=== PATIENT | female | born 1950 | race Caucasian/White ===

== ENCOUNTER 2022-01-10 13:30 | Outpatient (RCR) | payer MEDICARE, SELFPAY ==
[2022-01-07 10:25] VITALS: BP 150/72; PULSE 69; RESP 16; TEMP 36.5; BMI 40.8
--- NOTE | 2022-01-07 14:31 | HP.PCM_ITS ---
History of Present Illness Date of Service: 01/07/22 Chief Complaint: Bilateral lower extremity swelling and edema, with chronic dermatitic changes in the right gaiter area History of Wound: This is a 71-year-old female who presents with chronic swelling and edema in her lower extremities, with dermatitic changes in the gaiter area of the right lower extremity. The swelling and edema have been present for approximately 4 months. There currently are no open wounds. Erythema and sloughing epithelium are present in the right lower extremity. Patient claims that she has swelling in her lower extremities, more pronounced in the evenings. The skin changes in the right lower extremity began in September 2021, at which time she developed blistering. Because of the itching, patient scratched it, subsequently creating superficial ulcerations. She has been treated by her primary care physician in the past by steroid creams, which did not provide any improvement. The patient claims to sleep on a flat mattress at night. However, ambulation is limited due to pulmonary factors, as her asthma limits her ability to walk any significant distances. She spends a great deal of her time each day sitting. However, she denies any symptoms of intermittent claudication to suggest the presence of arterial insufficiency. Patient denies a history of lower extremity thrombophlebitis. [facility] Medical History (Updated 01/07/22 @ 14:[address] David Bruner MD) Asthma Chronic kidney disease, stage 3 Dependent edema GERD (gastroesophageal reflux disease) Glaucoma Hyperlipidemia Hypertension Leg edema Leg swelling Obesity Obstructive sleep apnea Venous stasis dermatitis Home Medications atorvastatin 10 mg PO DAILY 01/07/22 [History Last Taken Unknown] esomeprazole magnesium 40 mg PO DAILY 01/07/22 [History Last Taken Unknown] famotidine 40 mg PO DAILY 01/07/22 [History Last Taken Unknown] furosemide 10 mg PO BID 01/07/22 [History Last Taken Unknown] labetalol 300 mg PO BID 01/07/22 [History Last Taken Unknown] latanoprost 1 drp EACH EYE DAILY 01/07/22 [History Last Taken Unknown] lisinopril 20 mg PO DAILY 01/07/22 [History Last Taken Unknown] magnesium 15 mg PO DAILY 01/07/22 [History Last Taken Unknown] potassium citrate 10 meq PO TID 01/07/22 [History Last Taken Unknown] pramipexole 1 mg PO DAILY 01/07/22 [History Last Taken Unknown] spironolactone 25 mg DAILY 01/07/22 [History Last Taken Unknown] timolol maleate 1 drp EACH EYE DAILY 01/07/22 [History Last Taken Unknown] Allergy/AdvReac Type Severity Reaction Status Date / Time acetaminophen [From Vicodin] Allergy Itching Verified 01/07/22 10:55 hydrocodone [From Vicodin] Allergy Itching Verified 01/07/22 10:55 naproxen Allergy Swelling Verified 01/07/22 10:55 alendronate sodium AdvReac Nausea Verified 01/07/22 10:55 [From Fosamax] meloxicam AdvReac Nausea Verified 01/07/22 10:55 Social History Smoking Status: Never smoker Vital Signs Vital Signs Vital Signs: 01/07/22 10:25 Temperature 97.7 F L Temperature Source Temporal Pulse Rate 69 Respiratory Rate 16 Blood Pressure 150/72 H Blood Pressure Mean 98 Blood Pressure Source Monitor Blood Pressure Position Sitting Blood Pressure Location Right Arm Oxygen Delivery Method Room Air Weight Weight: 209 lb Body Mass Index (BMI) 40.8 Physical Exam Const alert, oriented x3, no apparent distress and well nourished Constitutional Narrative: The patient is obese. General Appearance: cooperative, comfortable and well developed Orientation / Consciousness: awake, oriented to person, oriented to place and oriented to time HEENT normocephalic and head/scalp atraumatic Head and Scalp: normal to inspection, normocephalic and atraumatic External Ear: external ears normal Eyes PERRL and EOMs intact bilaterally General Eye: normal appearance of both eyes Resp normal respiratory effort, normal air movement, no retractions and no use of accessory muscles Effort and Inspection: able to speak in complete sentences Extremity no calf tenderness General Extremity: Negative for clubbing or cyanosis Skin Wound Narrative: Mild swelling and edema are noted in the lower extremities bilaterally. The skin is intact in the left lower extremity. In the right gaiter area, however, there is a diffuse inflammatory erythema. Furthermore, there is a large area of sloughing epithelium. There are no odalys open wounds or ulcerations. Neuro oriented x3, CN's II-XII intact bilaterally and moves all extremities Sensorium / Orientation: awake, alert, oriented to person, oriented to place and oriented to time Psych Appearance: grossly normal and appropriate Attitude: calm Activity / Motor Behavior: appropriate eye contact Speech: normal speech Mood & Affect: euthymic mood Thought Process: normal thought process Thought Content: normal thought content Attention / Concentration: attention grossly intact Debridement Note Debridement Note No debridement was completed: No debridement was completed today (There are no open wounds or ulcerations.) Post-Debridement Measurements and Additional Note: Post-Debridement Measurements/Treatment - Nurse 1 - General Ulcer Assessment Start: 01/07/22 09:44 Freq: Status: Active Protocol: FRANCES Activity Type Activity Date Activity User E-Sign Co-Sign Detail Recorded Client Recorded Date Recorded By Document 01/07/22 10:25 MW [id number] 01/07/22 10:38 MW 01/07/22 10:25 - Today's Visit Information Type of service Initial Visit Arrival Mode Ambulatory Transfer Assistance None Accompanied by self Patient Identification Verified (Name & Yes ) Patient Requires Transmission-Based No Precautions Height and Weight Height 5 ft Weight 209 lb Weight in Pounds 209.0 lbs Weight Measurement Method Stated by Patient Body Mass Index (BMI) 40.8 BMI Classification Obese BSA - Christina 1.90 Vital Signs Temperature (97.8 F-99.1 F) 97.7 F L Temperature Source Temporal Pulse Rate (60-100) 69 Pulse Location Monitor Respiratory Rate (12-18) 16 Respiratory rate source Observation Oxygen Delivery Method Room Air Blood Pressure (90/60-120/80) 150/72 H Blood Pressure Mean 98 Source Monitor Position Sitting Blood Pressure Location Right Arm History Since Last Visit- (Skip if this is Patient's initial visit) Left Footwear Regular Shoe Right Footwear Regular Shoe Pain Scale: 0-10 Numeric Is Patient Pain Free? Yes Lower Extremity Assessment/ Foot Assessment/ Toe Nail Assessment Right -Popliteal Doppler Multiphasic -Posterior Tibial Palpable No -Posterior Tibial Doppler Multiphasic -Dorsalis Pedis Palpable No -Dorsalis Pedis Doppler Monophasic -Extremity Color Red -Hair Growth on Legs No -Hair Growth on Toes No -Temperature of Extremity Warm -Capillary Refill Less than 3 Seconds -Dependent Rubor No -Lipodermatosclerosis No -Other Deformity No -Prior Foot Ulcer No -Charcot Joint No -Prior Amputation No -Thick No -Discolored No -Deformed No -Improper Length & Hygeine No Left -Claudication Assessment N/A due to Amputation -Posterior Tibial Palpable No -Posterior Tibial Doppler Multiphasic -Dorsalis Pedis Palpable No -Dorsalis Pedis Doppler Multiphasic -Extremity Color Normal -Hair Growth on Legs No -Hair Growth on Toes No -Temperature of Extremity Warm -Capillary Refill Less than 3 Seconds -Dependent Rubor No -Lipodermatosclerosis No -Other Deformity No -Prior Foot Ulcer No -Charcot Joint No -Prior Amputation No -Thick No -Discolored No -Deformed No -Improper Length & Hygeine No Communication Assessment Preferred language Romansh Wind Turbine Installer Required No Able to Read Yes Able to Write Yes Communication Tools None,Letter Board Caregiver Communication Skills No Impairment Impairment Right Hearing Abillity Normal Left Hearing Abillity Normal Visual Assistive Devices Glasses Teaching Assessment Preferences Verbal,Written, Audio/Visual, Demonstration Barriers to Learning None Readiness To Learn Excellent Readiness to Engage in Self Management High Activities Anxiety Level Calm Cooperation Cooperative Perception Coherent Interest in Health Problem Asks Questions Education Importance Acknowledges Need Does Patient Smoke tobacco or other No substances Smoking Status Never smoker Is Patient Diabetic No Functional Assessment Recent Decline in Ability to Perform Denies Any Declines Assistive Device With Patient No Culture/Jain/Lathe Set Up Operator Cultural/Jain Needs that may affect No Treatment Plan Would you allow our hospital application internship to No meet you for the purpose of spiritual/ emotional support? Lathe Set Up Operator to contact place of sikhism No Teaching: Wound Center *Welcome to the Wound Center -Person Taught Patient -Teaching Method Discussion -Response to teaching Verbalize understanding WC - Nurse 1 - General Ulcer Measurement Start: 01/07/22 09:44 Freq: Status: Active Protocol: Activity Type Activity Date Activity User E-Sign Co-Sign Detail Recorded Client Recorded Date Recorded By Document 01/07/22 10:25 MW [id number] 01/07/22 10:38 MW 01/07/22 10:25 Wound Center Nurse 1 #1 RLE -Combined with other wound No -Current Size (cm) - Length 0.1 -Current Size (cm) - Width 0.1 -Current Size (cm) - Depth 0.1 -Total Square Cm 0.01 -Date of Last Picture (Recall this 01/07/22 field) -Photo Taken Yes -Epithelialization None Present -Tunneling No -Undermining/Tunneling No -Circular Undermining No -Exudate Amt None Present -Wound Margin Flat & Intact -Granulation Amt None Present (0 %) -Granulation Quality N/A -Slough/Fibrin Yes -Necrosis Amt Large (67-100%) -Necrotic Tissue Type Eschar -Structure Exposed N/A -Texture (Caitlin-wound Skin Appearance) Assessed, Excoriation, Localized Edema -Moisture (Caitlin-wound Skin Appearance) Assessed,Dry/ Scaly -Color (Caitlin-wound Skin Appearance) Assessed,Rubor -Temperature (Caitlin-wound Skin No Abnormality Appearance) (Pt Warm) -Tenderness on Palpation (Caitlin-wound No Skin Appearance) -Ulcer Cleansing Rinsed/ Irrigated with Saline -Foul Odor after Cleansing No Lower Limb Edema Present Yes Right Calf (cm) 47.5 Right Ankle (cm) 25.7 Left Calf (cm) 39.6 Left Ankle (cm) 26.5 WC - Nurse 2 - General Ulcer CM Notes Start: 01/07/22 09:44 Freq: Status: Active Protocol: Activity Type Activity Date Activity User E-Sign Co-Sign Detail Recorded Client Recorded Date Recorded By Document 01/07/22 13:26 PL [id number] 01/07/22 13:29 PL 01/07/22 13:26 Wound Center Nurse 2 #1 RLE -Time 10:55 -Correct Patient Yes -Correct Side, Site, Position Yes -Correct Procedure Yes -Procedure Performed Yes -Type of Procedure Debridement -Clinical Debridement Subcutaneous -Tissue Removed Subcutaneous -Post Debridement (cm) - Length 0.1 -Post Debridement (cm) - Width 0.1 -Post Debridement (cm) - Depth 0.1 -Total Square (Post) (cm) 0.01 -Area of Debridement (cm) - Length 0.1 -Area of Debridement (cm) - Width 0.1 -Total Square (Area) (cm) 0.01 -Tunneling No -Undermining/Tunneling No -Circular Undermining No -Wound/Ulcer Outcome Not Healed -Ulcer Cleansing Rinsed/ Irrigated with Saline -Foul Odor after Cleansing No -Bioengineered Tissue No -Bleeding Controlled with Pressure -Treatment Response Procedure Tolerated Well -Debridement - Subq, 1st 20sq cm Yes Pain Scale: 0-10 Numeric Is Patient Pain Free? Yes - Nurse 3 - General Ulcer D/C NN Start: 01/07/22 09:44 Freq: Status: Active Protocol: Activity Type Activity Date Activity User E-Sign Co-Sign Detail Recorded Client Recorded Date Recorded By Document 01/07/22 11:48 MELODY [id number] 01/07/22 11:49 DL 01/07/22 11:48 Wound Care Nurse 3 #1 RLE -Ulcer Cleansing Rinsed/ Irrigated with Saline -Foul Odor after Cleansing No -Other Dressing unna boot Left -Multi-Layered Wrap Application Multi-Layer Comp - Left ($) Right -Multi-Layered Wrap Application Unna Boot - Right ($) Treatment Response Procedure Tolerated Well Pain Scale: 0-10 Numeric Is Patient Pain Free? Yes WC - Visit Discharge Discharge Condition Stable Ambulatory Status Ambulatory Transportation Private Auto Assessment/Plan Assessment/Plan (1) Leg edema: CODE(S): R60.0 - Localized edema (2) Leg swelling: CODE(S): M79.89 - Other specified soft tissue disorders (3) Venous stasis dermatitis: CODE(S): I87.2 - Venous insufficiency (chronic) (peripheral) (4) Dependent edema: CODE(S): R60.9 - Edema, unspecified (5) Osteoarthritis: (6) Essential (primary) hypertension: CODE(S): I10 - Essential (primary) hypertension (7) GERD (gastroesophageal reflux disease): CODE(S): K21.9 - Gastro-esophageal reflux disease without esophagitis (8) Asthma: CODE(S): J45.909 - Unspecified asthma, uncomplicated (9) Hypertension: CODE(S): I10 - Essential (primary) hypertension (10) Hyperlipidemia: CODE(S): E78.5 - Hyperlipidemia, unspecified (11) Chronic kidney disease, stage 3: CODE(S): N18.30 - Chronic kidney disease, stage 3 unspecified (12) Obstructive sleep apnea: CODE(S): G47.33 - Obstructive sleep apnea (adult) (pediatric) (13) Glaucoma: CODE(S): H40.9 - Unspecified glaucoma (14) Restless leg: (15) Obesity: CODE(S): E66.9 - Obesity, unspecified PLAN: This is a 71-year-old obese female who presented with chronic swelling and edema in her lower extremities bilaterally. In addition, she has dermatitic changes in the right lower extremity. There are no doalys open wounds or ulcerations at this time. However, there are dermatitic changes in the patient's right gaiter area. We are to implement conservative treatment measures relative to the patient's swelling and edema. Patient has been instructed to continue sleeping on a flat mattress at night. She has been advised to elevate her lower extremities even during daytime hours. Patient is to be to heart level, or higher. This is to be implemented as much as possible. Prolonged idle sitting has been discouraged. Activity has been encouraged, though the patient is somewhat limited by her asthma. We are to implement compression to the lower extremities by means of wraps. A 3M, 2 layer compression wrap will be applied to the left lower extremity. A multilayer Unna boot will be applied to the right lower extremity, given the dermatologic changes. The compression wraps will be changed twice weekly. Weight loss has been recommended. The patient is return in 1 week for reassessment. Total time: 60 minutes
[2022-01-10 13:43] VITALS: BP 122/68; PULSE 89; RESP 20; TEMP 36.2; BMI 40.8
== END 2022-01-11 23:59 | disposition home or self-care (01) ==
LOC: WC 13:30
PROVIDERS: PCP Internal Medicine; Visit Provider Surgery
DX: M79.89 Other specified soft tissue disorders (principal); R60.0 Localized edema; I12.9 Hypertensive chronic kidney disease with stage 1 through stage 4 chronic kidney disease, or unspecified chronic kidney disease; N18.30 Chronic kidney disease, stage 3 unspecified; E78.5 Hyperlipidemia, unspecified; I87.2 Venous insufficiency (chronic) (peripheral); M19.90 Unspecified osteoarthritis, unspecified site; H40.9 Unspecified glaucoma; G25.81 Restless legs syndrome; J45.909 Unspecified asthma, uncomplicated; G47.33 Obstructive sleep apnea (adult) (pediatric); K21.9 Gastro-esophageal reflux disease without esophagitis; E66.9 Obesity, unspecified; Z79.899 Other long term (current) drug therapy; Z68.41 Body mass index [BMI] 40.0-44.9, adult
CPT/HCPCS: 11042; 29580; 29581; 99213; G0463

== ENCOUNTER 2022-02-04 08:15 | Outpatient (RCR) | payer MEDICARE, SELFPAY ==
[2022-01-12 00:50] VITALS: BP 122/68; PULSE 89; RESP 20; TEMP 36.2; BMI 40.8
[2022-01-14 08:25] VITALS: BP 147/62; PULSE 100; TEMP 35.8; BMI 40.8
--- NOTE | 2022-01-14 10:18 | PCM.WC.HP ---
History of Present Illness Date of Service: 01/14/22 Chief Complaint: Bilateral lower extremity swelling and edema, with chronic dermatitic changes in the right gaiter area History of Wound: This is a 71-year-old female who presented with chronic swelling and edema in her lower extremities, with dermatitic changes in the gaiter area of the right lower extremity. The swelling and edema had been present for approximately 4 months. There currently were no open wounds. Erythema and sloughing epithelium were present in the right lower extremity. Patient claims that she has swelling in her lower extremities, more pronounced in the evenings. The skin changes in the right lower extremity began in September 2021, at which time she developed blistering. Because of the itching, patient scratched it, subsequently creating superficial ulcerations. She has been treated by her primary care physician in the past by steroid creams, which did not provide any improvement. The patient claims to sleep on a flat mattress at night. However, ambulation is limited due to pulmonary factors, as her asthma limits her ability to walk any significant distances. She spends a great deal of her time each day sitting. However, she denies any symptoms of intermittent claudication to suggest the presence of arterial insufficiency. Patient denies a history of lower extremity thrombophlebitis. [facility] Medical History (Updated 01/07/22 @ 14:[address] David Bruner MD) Asthma Chronic kidney disease, stage 3 Dependent edema GERD (gastroesophageal reflux disease) Glaucoma Hyperlipidemia Hypertension Leg edema Leg swelling Obesity Obstructive sleep apnea Venous stasis dermatitis Home Medications atorvastatin 10 mg PO DAILY 01/07/22 [History Last Taken Unknown] esomeprazole magnesium 40 mg PO DAILY 01/07/22 [History Last Taken Unknown] famotidine 40 mg PO DAILY 01/07/22 [History Last Taken Unknown] furosemide 10 mg PO BID 01/07/22 [History Last Taken Unknown] labetalol 300 mg PO BID 01/07/22 [History Last Taken Unknown] latanoprost 1 drp EACH EYE DAILY 01/07/22 [History Last Taken Unknown] lisinopril 20 mg PO DAILY 01/07/22 [History Last Taken Unknown] magnesium 15 mg PO DAILY 01/07/22 [History Last Taken Unknown] potassium citrate 10 meq PO TID 01/07/22 [History Last Taken Unknown] pramipexole 1 mg PO DAILY 01/07/22 [History Last Taken Unknown] spironolactone 25 mg DAILY 01/07/22 [History Last Taken Unknown] timolol maleate 1 drp EACH EYE DAILY 01/07/22 [History Last Taken Unknown] Allergy/AdvReac Type Severity Reaction Status Date / Time acetaminophen [From Vicodin] Allergy Itching Verified 01/07/22 10:55 hydrocodone [From Vicodin] Allergy Itching Verified 01/07/22 10:55 naproxen Allergy Swelling Verified 01/07/22 10:55 alendronate sodium AdvReac Nausea Verified 01/07/22 10:55 [From Fosamax] meloxicam AdvReac Nausea Verified 01/07/22 10:55 Social History Smoking Status: Never smoker Vital Signs Vital Signs Vital Signs: 01/14/22 08:25 Temperature 96.5 F L Temperature Source Temporal Pulse Rate 100 Blood Pressure 147/62 H Blood Pressure Mean 90 Blood Pressure Source Monitor Blood Pressure Position Sitting Blood Pressure Location Left Arm Weight Weight: 209 lb Body Mass Index (BMI) 40.8 Physical Exam Const alert, oriented x3, no apparent distress and well nourished Constitutional Narrative: The patient is morbidly obese. General Appearance: cooperative, comfortable and well developed Orientation / Consciousness: awake, oriented to person, oriented to place and oriented to time HEENT normocephalic and head/scalp atraumatic Head and Scalp: normal to inspection, normocephalic and atraumatic External Ear: external ears normal Eyes PERRL and EOMs intact bilaterally General Eye: normal appearance of both eyes Resp normal respiratory effort, normal air movement, no retractions and no use of accessory muscles Effort and Inspection: able to speak in complete sentences Extremity no calf tenderness General Extremity: Negative for clubbing or cyanosis Skin Wound Narrative: The swelling in the patient's lower extremities persists, but is less in severity. The decrease in swelling is more notable on the right. There are no significant skin changes in the distal left lower extremity. On the right, erythema persists, which is thought to be inflammatory in nature, rather than cellulitic. Diffuse sloughing epithelium is noted in the right gaiter area, associated with the dermatitic changes. There are no odalys open wounds or ulcerations. Neuro oriented x3, CN's II-XII intact bilaterally and moves all extremities Sensorium / Orientation: awake, alert, oriented to person, oriented to place and oriented to time Psych Appearance: grossly normal and appropriate Attitude: calm Activity / Motor Behavior: appropriate eye contact Speech: normal speech Mood & Affect: euthymic mood Thought Process: normal thought process Thought Content: normal thought content Attention / Concentration: attention grossly intact Debridement Note Debridement Note No debridement was completed: No debridement was completed today (There are no odalys open wounds or ulcerations.) Post-Debridement Measurements and Additional Note: Post-Debridement Measurements/Treatment - Nurse 1 - General Ulcer Assessment Start: 01/14/22 08:25 Freq: Status: Active Protocol: FRANCES Activity Type Activity Date Activity User E-Sign Co-Sign Detail Recorded Client Recorded Date Recorded By Document 01/14/22 08:25 KAJAL [id number] 01/14/22 08:37 KAJAL 01/14/22 08:25 WC - Today's Visit Information Type of service Follow-up Visit (Physician/FREIGHT [facility] ) Arrival Mode Ambulatory Patient Identification Verified (Name & Yes ) Height and Weight Body Mass Index (BMI) 40.8 BMI Classification Obese Vital Signs Temperature (97.8 F-99.1 F) 96.5 F L Temperature Source Temporal Pulse Rate (60-100) 100 Pulse Location Monitor Blood Pressure (90/60-120/80) 147/62 H Blood Pressure Mean 90 Source Monitor Position Sitting Blood Pressure Location Left Arm History Since Last Visit- (Skip if this is Patient's initial visit) Have you changed medications since your No last visit? Any new allergies or adverse reactions No Had a fall/change in ADL's that may No increase risk of falls Signs or symptoms of abuse and/or No neglect since last visit Have you been in the hospital since your No last visit? Has dressing in place as prescribed Yes Has compression in place as prescribed Yes Has offloadiing in place as prescribed N/A Experienced any changes in pain level or No management Left Footwear Regular Shoe Right Footwear Regular Shoe Pain Scale: 0-10 Numeric Is Patient Pain Free? Yes - Nurse 1 - General Ulcer Measurement Start: 01/14/22 08:25 Freq: Status: Active Protocol: Activity Type Activity Date Activity User E-Sign Co-Sign Detail Recorded Client Recorded Date Recorded By Document 01/14/22 08:25 KAJAL [id number] 01/14/22 08:37 KR 01/14/22 08:25 Wound Center Nurse 1 #1 RLE -Current Size (cm) - Length 0.6 -Current Size (cm) - Width 0.6 -Current Size (cm) - Depth 0.1 -Total Square Cm 0.36 -Exudate Amt Small -Exudate Type Serosanguineous -Wound Margin Distinct, Outline Attached -Granulation Amt Small (1-33%) -Granulation Quality Red -Necrosis Amt None Present (0 %) -Texture (Caitlin-wound Skin Appearance) Assessed, Scarring -Moisture (Caitlin-wound Skin Appearance) Assessed,Dry/ Scaly -Color (Caitlin-wound Skin Appearance) No Abnormality, Assessed -Temperature (Caitlin-wound Skin No Abnormality Appearance) (Pt Warm) -Tenderness on Palpation (Caitlin-wound No Skin Appearance) -Ulcer Cleansing Soap and Water -Foul Odor after Cleansing No -Anesthetic Used 4% Lidocaine Solution Right Calf (cm) 43.1 Right Ankle (cm) 26.5 Left Calf (cm) 40 Left Ankle (cm) 24.2 - Nurse 3 - General Ulcer D/C NN Start: 01/14/22 08:25 Freq: Status: Active Protocol: Activity Type Activity Date Activity User E-Sign Co-Sign Detail Recorded Client Recorded Date Recorded By Document 01/14/22 09:31 KAJAL [id number] 01/14/22 09:32 KAJAL 01/14/22 09:31 Wound Care Nurse 3 #1 RLE -Ulcer Cleansing Rinsed/ Irrigated with Saline Right -Multi-Layered Wrap Application Unna Boot - Right ($) Left -Multi-Layered Wrap Application Multi-Layer Comp - Left ($) Pain Scale: 0-10 Numeric Is Patient Pain Free? Yes WC - Visit Discharge Discharge Condition Stable Ambulatory Status Ambulatory Transportation Private Auto Assessment/Plan Assessment/Plan (1) Venous stasis dermatitis: CODE(S): I87.2 - Venous insufficiency (chronic) (peripheral) (2) Dependent edema: CODE(S): R60.9 - Edema, unspecified (3) Leg edema: CODE(S): R60.0 - Localized edema (4) Leg swelling: CODE(S): M79.89 - Other specified soft tissue disorders (5) Glaucoma: CODE(S): H40.9 - Unspecified glaucoma (6) Obstructive sleep apnea: CODE(S): G47.33 - Obstructive sleep apnea (adult) (pediatric) (7) Chronic kidney disease, stage 3: CODE(S): N18.30 - Chronic kidney disease, stage 3 unspecified (8) Hyperlipidemia: CODE(S): E78.5 - Hyperlipidemia, unspecified (9) Hypertension: CODE(S): I10 - Essential (primary) hypertension (10) Asthma: CODE(S): J45.909 - Unspecified asthma, uncomplicated (11) GERD (gastroesophageal reflux disease): CODE(S): K21.9 - Gastro-esophageal reflux disease without esophagitis (12) Restless leg: (13) Osteoarthritis: (14) Essential (primary) hypertension: CODE(S): I10 - Essential (primary) hypertension (15) Obesity: CODE(S): E66.9 - Obesity, unspecified PLAN: This is a 71-year-old obese female who presented with chronic swelling and edema in her lower extremities bilaterally. In addition, she has dermatitic changes in the right lower extremity. There are no odalys open wounds or ulcerations at this time. However, there are dermatitic changes in the patient's right gaiter area. We are to continue conservative treatment measures relative to the patient's swelling and edema. Patient has been instructed to continue sleeping on a flat mattress at night. She has been advised to elevate her lower extremities even during daytime hours. Elevation is to be to heart level, or higher. This is to be implemented as much as possible. Prolonged idle sitting has been discouraged. Activity has been encouraged, though the patient is somewhat limited by her asthma. We are to implement compression to the lower extremities by means of wraps. A 3M, 2 layer compression wrap will be applied to the left lower extremity. A multilayer Unna boot will be applied to the right lower extremity, given the dermatologic changes. The compression wraps will be changed twice weekly. Weight loss has been recommended. We are to request pneumatic mechanical compression pumps for the patient's lower extremities, which will likely assist in the control of the patient's lower extremity swelling and edema. The patient is return in 1 week for reassessment. Total time: 29 minutes
[2022-01-17 08:16] VITALS: BP 124/49; PULSE 83; RESP 18; TEMP 35.9; BMI 40.8
[2022-01-21 08:25] VITALS: BP 127/53; PULSE 83; TEMP 35.9; BMI 40.8
--- NOTE | 2022-01-21 09:07 | HP.PCM_ITS ---
History of Present Illness Date of Service: 01/21/22 Chief Complaint: Bilateral lower extremity swelling and edema, with chronic dermatitic changes in the right gaiter area History of Wound: This is a 71-year-old female who presented with chronic swelling and edema in her lower extremities, with dermatitic changes in the gaiter area of the right lower extremity. The swelling and edema had been present for approximately 4 months. There currently were no open wounds. Erythema and sloughing epithelium were present in the right lower extremity. Patient claims that she has swelling in her lower extremities, more pronounced in the evenings. The skin changes in the right lower extremity began in September 2021, at which time she developed blistering. Because of the itching, patient scratched it, subsequently creating superficial ulcerations. She has been treated by her primary care physician in the past by steroid creams, which did not provide any improvement. The patient claims to sleep on a flat mattress at night. However, ambulation is limited due to pulmonary factors, as her asthma limits her ability to walk any significant distances. She spends a great deal of her time each day sitting. However, she denies any symptoms of intermittent claudication to suggest the presence of arterial insufficiency. Patient denies a history of lower extremity thrombophlebitis. [facility] Medical History (Updated 01/21/22 @ 09:[address] David Bruner MD) Asthma Chronic kidney disease, stage 3 Dependent edema Dermatomycosis GERD (gastroesophageal reflux disease) Glaucoma Hyperlipidemia Hypertension Leg edema Leg swelling Obesity Obstructive sleep apnea Venous stasis dermatitis Home Medications atorvastatin 10 mg PO DAILY 01/07/22 [History Last Taken Unknown] esomeprazole magnesium 40 mg PO DAILY 01/07/22 [History Last Taken Unknown] famotidine 40 mg PO DAILY 01/07/22 [History Last Taken Unknown] furosemide 10 mg PO BID 01/07/22 [History Last Taken Unknown] labetalol 300 mg PO BID 01/07/22 [History Last Taken Unknown] latanoprost 1 drp EACH EYE DAILY 01/07/22 [History Last Taken Unknown] lisinopril 20 mg PO DAILY 01/07/22 [History Last Taken Unknown] magnesium 15 mg PO DAILY 01/07/22 [History Last Taken Unknown] potassium citrate 10 meq PO TID 01/07/22 [History Last Taken Unknown] pramipexole 1 mg PO DAILY 01/07/22 [History Last Taken Unknown] spironolactone 25 mg DAILY 01/07/22 [History Last Taken Unknown] timolol maleate 1 drp EACH EYE DAILY 01/07/22 [History Last Taken Unknown] Allergy/AdvReac Type Severity Reaction Status Date / Time acetaminophen [From Vicodin] Allergy Itching Verified 01/07/22 10:55 hydrocodone [From Vicodin] Allergy Itching Verified 01/07/22 10:55 naproxen Allergy Swelling Verified 01/07/22 10:55 alendronate sodium AdvReac Nausea Verified 01/07/22 10:55 [From Fosamax] meloxicam AdvReac Nausea Verified 01/07/22 10:55 Social History Smoking Status: Never smoker Vital Signs Vital Signs Vital Signs: 01/21/22 08:25 Temperature 96.6 F L Temperature Source Temporal Pulse Rate 83 Blood Pressure 127/53 H Blood Pressure Mean 77 Blood Pressure Source Monitor Weight Weight: 209 lb Body Mass Index (BMI) 40.8 Physical Exam Const alert, oriented x3, no apparent distress and well nourished Constitutional Narrative: The patient is obese. General Appearance: cooperative, comfortable and well developed Orientation / Consciousness: awake, oriented to person, oriented to place and oriented to time HEENT normocephalic and head/scalp atraumatic Head and Scalp: normal to inspection, normocephalic and atraumatic External Ear: external ears normal Eyes PERRL and EOMs intact bilaterally General Eye: normal appearance of both eyes Resp normal respiratory effort, normal air movement, no retractions and no use of accessory muscles Effort and Inspection: able to speak in complete sentences Extremity no calf tenderness General Extremity: Negative for clubbing or cyanosis Skin Wound Narrative: Slight swelling is noted in the lower extremities bilaterally. However, it continues to improve. Erythema persists in the right gaiter area, involving a large area circumferentially. There are no odalys open wounds or ulcerations. Neuro oriented x3, CN's II-XII intact bilaterally and moves all extremities Sensorium / Orientation: awake, alert, oriented to person, oriented to place and oriented to time Psych Appearance: grossly normal and appropriate Attitude: calm Activity / Motor Behavior: appropriate eye contact Speech: normal speech Mood & Affect: euthymic mood Thought Process: normal thought process Thought Content: normal thought content Attention / Concentration: attention grossly intact Debridement Note Debridement Note No debridement was completed: No debridement was completed today (There are no open wounds or ulcerations at this time.) Post-Debridement Measurements and Additional Note: Post-Debridement Measurements/Treatment WC - Nurse 1 - General Ulcer Assessment Start: 01/14/22 08:25 Freq: Status: Active Protocol: JUSTIN.[email or web address] Activity Type Activity Date Activity User E-Sign Co-Sign Detail Recorded Client Recorded Date Recorded By Document 01/14/22 08:25 KR [id number] 01/14/22 08:37 KR Document 01/17/22 08:16 RB [id number] 01/17/22 08:20 RB Document 01/21/22 08:25 AK [id number] 01/21/22 08:30 AK 01/14/22 01/17/22 01/21/22 08:25 08:16 08:25 - Today's Visit Information Type of service Follow-up Visit Nurse-only Follow-up Visit (Physician/WEAVE DEFECT CHARTING CLERK Visit (Physician/WEAVE DEFECT CHARTING CLERK ) ) Arrival Mode Ambulatory Ambulatory Ambulatory Transfer Assistance None Patient Identification Verified (Name & Yes Yes Yes ) Patient Requires Transmission-Based No No Precautions Safety Precautions NA Height and Weight Body Mass Index (BMI) 40.8 40.8 40.8 BMI Classification Obese Obese Obese Vital Signs Temperature (97.8 F-99.1 F) 96.5 F L 96.7 F L 96.6 F L Temperature Source Temporal Temporal Temporal Pulse Rate (60-100) 100 83 83 Pulse Location Monitor Monitor Respiratory Rate (12-18) 18 Respiratory rate source Observation Blood Pressure (90/60-120/80) 147/62 H 124/49 H 127/53 H Blood Pressure Mean 90 74 77 Source Monitor Monitor Monitor Position Sitting Sitting Blood Pressure Location Left Arm Right Arm History Since Last Visit- (Skip if this is Patient's initial visit) Have you changed medications since your No No No last visit? Any new allergies or adverse reactions No No No Had a fall/change in ADL's that may No No No increase risk of falls Signs or symptoms of abuse and/or No No No neglect since last visit Have you been in the hospital since your No No No last visit? Has dressing in place as prescribed Yes Yes Yes Has compression in place as prescribed Yes Yes Yes Has offloadiing in place as prescribed N/A No N/A Experienced any changes in pain level or No No No management Left Footwear Regular Shoe Regular Shoe Regular Shoe Right Footwear Regular Shoe Regular Shoe Regular Shoe Pain Scale: 0-10 Numeric Is Patient Pain Free? Yes Yes Yes WC - Nurse 1 - General Ulcer Measurement Start: 01/14/22 08:25 Freq: Status: Active Protocol: Activity Type Activity Date Activity User E-Sign Co-Sign Detail Recorded Client Recorded Date Recorded By Document 01/14/22 08:25 KR [id number] 01/14/22 08:37 KR Document 01/17/22 08:16 RB [id number] 01/17/22 08:20 RB Document 01/21/22 08:25 AK [id number] 01/21/22 08:30 AK 01/14/22 01/17/22 01/21/22 08:25 08:16 08:25 Wound Center Nurse 1 #1 RLE -Combined with other wound No -Current Size (cm) - Length 0.6 0.1 -Current Size (cm) - Width 0.6 0.1 -Current Size (cm) - Depth 0.1 0.1 -Total Square Cm 0.36 0.01 -Photo Taken No -Tunneling No -Undermining/Tunneling No -Circular Undermining No -Exudate Amt Small Large None Present -Exudate Type Serosanguineous Serosanguineous -Wound Margin Distinct, Outline Attached -Granulation Amt Small (1-33%) Medium (34-66%) Large (67-100%) -Granulation Quality Red Ben Arnold N/A,Ben Arnold -Slough/Fibrin Yes Yes -Necrosis Amt None Present (0 Large (67-100%) Large (67-100%) %) -Necrotic Tissue Type Adherent Slough Adherent Slough -Structure Exposed N/A -Texture (Caitlin-wound Skin Appearance) Assessed, No Abnormality, Scarring Assessed -Moisture (Caitlin-wound Skin Appearance) Assessed,Dry/ No Abnormality, Scaly Assessed -Color (Caitlin-wound Skin Appearance) No Abnormality, Assessed, Assessed Erythema -Temperature (Caitlin-wound Skin No Abnormality No Abnormality Appearance) (Pt Warm) (Pt Warm) -Tenderness on Palpation (Caitlin-wound No No Skin Appearance) -Ulcer Cleansing Soap and Water Soap and Water -Foul Odor after Cleansing No No -Anesthetic Used 4% Lidocaine Solution Lower Limb Edema Present Yes No Right Calf (cm) 43.1 37.2 Right Ankle (cm) 26.5 24.8 Left Calf (cm) 40 37.5 Left Ankle (cm) 24.2 23.5 WC - Nurse 3 - General Ulcer D/C NN Start: 01/14/22 08:25 Freq: Status: Active Protocol: Activity Type Activity Date Activity User E-Sign Co-Sign Detail Recorded Client Recorded Date Recorded By Document 01/14/22 09:31 KR [id number] 01/14/22 09:32 KR Document 01/17/22 08:16 RB [id number] 01/17/22 08:20 RB Document 01/21/22 08:55 DL [id number] 01/21/22 08:57 DL 01/14/22 01/17/22 01/21/22 09:31 08:16 08:55 Wound Care Nurse 3 #1 RLE -Ulcer Cleansing Rinsed/ Wound Cleanser Rinsed/ Irrigated with Irrigated with Saline Saline -Foul Odor after Cleansing No -Primary Dressing Covered/Secured with Dry Gauze & Roll Gauze Right -Multi-Layered Wrap Application Unna Boot - Unna Boot - Right ($) Right ($) -Compression Wrap Surepress ($) Left -Multi-Layered Wrap Application Multi-Layer Multi-Layer Comp - Left ($) Comp - Left ($) -Compression Wrap Surepress ($) Treatment Response Procedure Procedure Tolerated Well Tolerated Well Vital Signs Temperature (97.8 F-99.1 F) 96.7 F L Temperature Source Temporal Pulse Rate (60-100) 83 Pulse Location Monitor Respiratory Rate (12-18) 18 Respiratory rate source Observation Blood Pressure (90/60-120/80) 124/49 H Blood Pressure Mean 74 Source Monitor Position Sitting Blood Pressure Location Right Arm Pain Scale: 0-10 Numeric Is Patient Pain Free? Yes Yes Yes WC - Visit Discharge Discharge Condition Stable Stable Stable Ambulatory Status Ambulatory Ambulatory Ambulatory Transportation Private Auto Private Auto Private Auto Medication Reconcilliation completed & No provided to patient/care provider Clinical Summary of Care Provided Yes Assessment/Plan Assessment/Plan (1) Dermatomycosis: CODE(S): B36.9 - Superficial mycosis, unspecified (2) Obesity: CODE(S): E66.9 - Obesity, unspecified (3) Dependent edema: CODE(S): R60.9 - Edema, unspecified (4) Venous stasis dermatitis: CODE(S): I87.2 - Venous insufficiency (chronic) (peripheral) (5) Leg edema: CODE(S): R60.0 - Localized edema (6) Leg swelling: CODE(S): M79.89 - Other specified soft tissue disorders (7) Glaucoma: CODE(S): H40.9 - Unspecified glaucoma (8) Obstructive sleep apnea: CODE(S): G47.33 - Obstructive sleep apnea (adult) (pediatric) (9) Chronic kidney disease, stage 3: CODE(S): N18.30 - Chronic kidney disease, stage 3 unspecified (10) Hyperlipidemia: CODE(S): E78.5 - Hyperlipidemia, unspecified (11) Hypertension: CODE(S): I10 - Essential (primary) hypertension (12) Asthma: CODE(S): J45.909 - Unspecified asthma, uncomplicated (13) GERD (gastroesophageal reflux disease): CODE(S): K21.9 - Gastro-esophageal reflux disease without esophagitis (14) Restless leg: (15) Osteoarthritis: (16) Essential (primary) hypertension: CODE(S): I10 - Essential (primary) hypertension PLAN: This is a 71-year-old obese female who presented with chronic swelling and edema in her lower extremities bilaterally. In addition, she has dermatitic changes in the right lower extremity. There are no odalys open wounds or ulcerations at this time. However, there are dermatitic changes in the patient's right gaiter area. We are to continue conservative treatment measures relative to the patient's swelling and edema. Patient has been instructed to continue sleeping on a flat mattress at night. She has been advised to elevate her lower extremities even during daytime hours. Elevation is to be to heart level, or higher. This is to be implemented as much as possible. Prolonged idle sitting has been discouraged. Activity has been encouraged, though the patient is somewhat limited by her asthma. At this juncture, there is suspicion that the large area of erythema in the right gaiter area may represent a dermatomycosis. Therefore, we are to alter our current treatment plan. Lotrisone cream 1% has been prescribed. A tube of 45 g has been prescribed, with 2 available refills. Patient is to apply topically twice daily. We are to continue compression to the lower extremities bilaterally by means of SurePress wraps, which will be applied by the patient on a daily basis, from morning until bedtime. She has been instructed in the appropriate means of application. Weight loss has been recommended. We have requested pneumatic mechanical compression pumps for the patient's lower extremities, which will likely assist in the control of the patient's lower extremity swelling and edema. The mechanical pumps are awaited, but may be delayed due to supply chain issues. The patient is return in 1 week for reassessment. Total time: 28 minutes
[2022-01-28 08:18] VITALS: BMI 40.8
--- NOTE | 2022-01-28 08:53 | PCM.WC.HP ---
History of Present Illness Date of Service: 01/28/22 Chief Complaint: Bilateral lower extremity swelling and edema, with chronic dermatitic changes in the right gaiter area History of Wound: This is a 71-year-old female who presented with chronic swelling and edema in her lower extremities, with dermatitic changes in the gaiter area of the right lower extremity. The swelling and edema had been present for approximately 4 months. There currently were no open wounds. Erythema and sloughing epithelium were present in the right lower extremity. Patient claims that she has swelling in her lower extremities, more pronounced in the evenings. The skin changes in the right lower extremity began in September 2021, at which time she developed blistering. Because of the itching, patient scratched it, subsequently creating superficial ulcerations. She has been treated by her primary care physician in the past by steroid creams, which did not provide any improvement. The patient claims to sleep on a flat mattress at night. However, ambulation is limited due to pulmonary factors, as her asthma limits her ability to walk any significant distances. She spends a great deal of her time each day sitting. However, she denies any symptoms of intermittent claudication to suggest the presence of arterial insufficiency. Patient denies a history of lower extremity thrombophlebitis. [facility] Medical History Asthma Chronic kidney disease, stage 3 Dependent edema Dermatomycosis GERD (gastroesophageal reflux disease) Glaucoma Hyperlipidemia Hypertension Leg edema Leg swelling Obesity Obstructive sleep apnea Venous stasis dermatitis Home Medications atorvastatin 10 mg PO DAILY 01/07/22 [History Last Taken Unknown] esomeprazole magnesium 40 mg PO DAILY 01/07/22 [History Last Taken Unknown] famotidine 40 mg PO DAILY 01/07/22 [History Last Taken Unknown] furosemide 10 mg PO BID 01/07/22 [History Last Taken Unknown] labetalol 300 mg PO BID 01/07/22 [History Last Taken Unknown] latanoprost 1 drp EACH EYE DAILY 01/07/22 [History Last Taken Unknown] lisinopril 20 mg PO DAILY 01/07/22 [History Last Taken Unknown] magnesium 15 mg PO DAILY 01/07/22 [History Last Taken Unknown] potassium citrate 10 meq PO TID 01/07/22 [History Last Taken Unknown] pramipexole 1 mg PO DAILY 01/07/22 [History Last Taken Unknown] spironolactone 25 mg DAILY 01/07/22 [History Last Taken Unknown] timolol maleate 1 drp EACH EYE DAILY 01/07/22 [History Last Taken Unknown] Allergy/AdvReac Type Severity Reaction Status Date / Time acetaminophen [From Vicodin] Allergy Itching Verified 01/07/22 10:55 hydrocodone [From Vicodin] Allergy Itching Verified 01/07/22 10:55 naproxen Allergy Swelling Verified 01/07/22 10:55 alendronate sodium AdvReac Nausea Verified 01/07/22 10:55 [From Fosamax] meloxicam AdvReac Nausea Verified 01/07/22 10:55 Social History Smoking Status: Never smoker Vital Signs Vital Signs Vital Signs: Weight Weight: 209 lb Body Mass Index (BMI) 40.8 Physical Exam Const alert, oriented x3, no apparent distress and well nourished Constitutional Narrative: The patient is obese. General Appearance: cooperative, comfortable and well developed Orientation / Consciousness: awake, oriented to person, oriented to place and oriented to time HEENT normocephalic and head/scalp atraumatic Head and Scalp: normal to inspection, normocephalic and atraumatic External Ear: external ears normal Eyes PERRL and EOMs intact bilaterally General Eye: normal appearance of both eyes Resp normal respiratory effort, normal air movement, no retractions and no use of accessory muscles Effort and Inspection: able to speak in complete sentences Extremity no calf tenderness General Extremity: Negative for clubbing or cyanosis Skin Wound Narrative: Mild swelling and edema are noted in the lower extremities bilaterally. Diffuse erythema is noted in the gaiter area on the right. There is some slough of epithelium in the right gaiter area. There are no odalys open wounds or ulcerations. Neuro oriented x3, CN's II-XII intact bilaterally and moves all extremities Sensorium / Orientation: awake, alert, oriented to person, oriented to place and oriented to time Psych Appearance: grossly normal and appropriate Attitude: calm Activity / Motor Behavior: appropriate eye contact Speech: normal speech Mood & Affect: euthymic mood Thought Process: normal thought process Thought Content: normal thought content Attention / Concentration: attention grossly intact Debridement Note Debridement Note No debridement was completed: No debridement was completed today (There are no odalys open wounds or ulcerations.) Post-Debridement Measurements and Additional Note: Post-Debridement Measurements/Treatment WC - Nurse 1 - General Ulcer Assessment Start: 01/14/22 08:25 Freq: Status: Active Protocol: FRANCES Activity Type Activity Date Activity User E-Sign Co-Sign Detail Recorded Client Recorded Date Recorded By Document 01/14/22 08:25 KR [id number] 01/14/22 08:37 KR Document 01/17/22 08:16 RB [id number] 01/17/22 08:20 RB Document 01/21/22 08:25 AK [id number] 01/21/22 08:30 AK Document 01/28/22 08:18 AK [id number] 01/28/22 08:24 AK 01/14/22 01/17/22 01/21/22 08:25 08:16 08:25 WC - Today's Visit Information Type of service Follow-up Visit Nurse-only Follow-up Visit (Physician/WORKERS COMPENSATION MANAGER Visit (Physician/WORKERS COMPENSATION MANAGER ) ) Arrival Mode Ambulatory Ambulatory Ambulatory Transfer Assistance None Patient Identification Verified (Name & Yes Yes Yes ) Patient Requires Transmission-Based No No Precautions Safety Precautions NA Height and Weight Body Mass Index (BMI) 40.8 40.8 40.8 BMI Classification Obese Obese Obese Vital Signs Temperature (97.8 F-99.1 F) 96.5 F L 96.7 F L 96.6 F L Temperature Source Temporal Temporal Temporal Pulse Rate (60-100) 100 83 83 Pulse Location Monitor Monitor Respiratory Rate (12-18) 18 Respiratory rate source Observation Blood Pressure (90/60-120/80) 147/62 H 124/49 H 127/53 H Blood Pressure Mean 90 74 77 Source Monitor Monitor Monitor Position Sitting Sitting Blood Pressure Location Left Arm Right Arm History Since Last Visit- (Skip if this is Patient's initial visit) Have you changed medications since your No No No last visit? Any new allergies or adverse reactions No No No Had a fall/change in ADL's that may No No No increase risk of falls Signs or symptoms of abuse and/or No No No neglect since last visit Have you been in the hospital since your No No No last visit? Has dressing in place as prescribed Yes Yes Yes Has compression in place as prescribed Yes Yes Yes Has offloadiing in place as prescribed N/A No N/A Experienced any changes in pain level or No No No management Left Footwear Regular Shoe Regular Shoe Regular Shoe Right Footwear Regular Shoe Regular Shoe Regular Shoe Pain Scale: 0-10 Numeric Is Patient Pain Free? Yes Yes Yes 01/28/22 08:18 WC - Today's Visit Information Type of service Follow-up Visit (Physician/WORKERS COMPENSATION MANAGER ) Arrival Mode Transfer Assistance Patient Identification Verified (Name & ) Patient Requires Transmission-Based Precautions Safety Precautions Height and Weight Body Mass Index (BMI) 40.8 BMI Classification Obese Vital Signs Temperature (97.8 F-99.1 F) Temperature Source Pulse Rate (60-100) Pulse Location Respiratory Rate (12-18) Respiratory rate source Blood Pressure (90/60-120/80) Blood Pressure Mean Source Position Blood Pressure Location History Since Last Visit- (Skip if this is Patient's initial visit) Have you changed medications since your last visit? Any new allergies or adverse reactions Had a fall/change in ADL's that may increase risk of falls Signs or symptoms of abuse and/or neglect since last visit Have you been in the hospital since your last visit? Has dressing in place as prescribed Has compression in place as prescribed Has offloadiing in place as prescribed Experienced any changes in pain level or management Left Footwear Right Footwear Pain Scale: 0-10 Numeric Is Patient Pain Free? Yes - Nurse 1 - General Ulcer Measurement Start: 01/14/22 08:25 Freq: Status: Active Protocol: Activity Type Activity Date Activity User E-Sign Co-Sign Detail Recorded Client Recorded Date Recorded By Document 01/14/22 08:25 KR [id number] 01/14/22 08:37 KR Document 01/17/22 08:16 RB [id number] 01/17/22 08:20 RB Document 01/21/22 08:25 AK [id number] 01/21/22 08:30 AK Document 01/28/22 08:18 AK [id number] 01/28/22 08:24 AK 01/14/22 01/17/22 01/21/22 08:25 08:16 08:25 Wound Center Nurse 1 #1 RLE -Combined with other wound No -Current Size (cm) - Length 0.6 0.1 -Current Size (cm) - Width 0.6 0.1 -Current Size (cm) - Depth 0.1 0.1 -Total Square Cm 0.36 0.01 -Photo Taken No -Tunneling No -Undermining/Tunneling No -Circular Undermining No -Exudate Amt Small Large None Present -Exudate Type Serosanguineous Serosanguineous -Wound Margin Distinct, Outline Attached -Granulation Amt Small (1-33%) Medium (34-66%) Large (67-100%) -Granulation Quality [place] N/A,[place] -Slough/Fibrin Yes Yes -Necrosis Amt None Present (0 Large (67-100%) Large (67-100%) %) -Necrotic Tissue Type Adherent Slough Adherent Slough -Structure Exposed N/A -Texture (Caitlin-wound Skin Appearance) Assessed, No Abnormality, Scarring Assessed -Moisture (Caitlin-wound Skin Appearance) Assessed,Dry/ No Abnormality, Scaly Assessed -Color (Caitlin-wound Skin Appearance) No Abnormality, Assessed, Assessed Erythema -Temperature (Caitlin-wound Skin No Abnormality No Abnormality Appearance) (Pt Warm) (Pt Warm) -Tenderness on Palpation (Caitlin-wound No No Skin Appearance) -Ulcer Cleansing Soap and Water Soap and Water -Foul Odor after Cleansing No No -Anesthetic Used 4% Lidocaine Solution Lower Limb Edema Present Yes No Right Calf (cm) 43.1 37.2 Right Ankle (cm) 26.5 24.8 Left Calf (cm) 40 37.5 Left Ankle (cm) 24.2 23.5 01/28/22 08:18 Wound Center Nurse 1 #1 RLE -Combined with other wound -Current Size (cm) - Length 0.1 -Current Size (cm) - Width 0.1 -Current Size (cm) - Depth 0.1 -Total Square Cm 0.01 -Photo Taken Yes -Tunneling -Undermining/Tunneling -Circular Undermining -Exudate Amt Small -Exudate Type -Wound Margin Indistinct, Non -Visible -Granulation Amt Large (67-100%) -Granulation Quality [place] -Slough/Fibrin -Necrosis Amt None Present (0 %) -Necrotic Tissue Type -Structure Exposed N/A -Texture (Caitlin-wound Skin Appearance) Excoriation, Rash -Moisture (Caitlin-wound Skin Appearance) Dry/Scaly -Color (Caitlin-wound Skin Appearance) Hemosiderin Staining -Temperature (Caitlin-wound Skin No Abnormality Appearance) (Pt Warm) -Tenderness on Palpation (Caitlin-wound No Skin Appearance) -Ulcer Cleansing Soap and Water -Foul Odor after Cleansing No -Anesthetic Used 4% Lidocaine Solution Lower Limb Edema Present Right Calf (cm) 39 Right Ankle (cm) 26 Left Calf (cm) Left Ankle (cm) WC - Nurse 3 - General Ulcer D/C NN Start: 01/14/22 08:25 Freq: Status: Active Protocol: Activity Type Activity Date Activity User E-Sign Co-Sign Detail Recorded Client Recorded Date Recorded By Document 01/14/22 09:31 KR [id number] 01/14/22 09:32 KR Document 01/17/22 08:16 RB [id number] 01/17/22 08:20 RB Document 01/21/22 08:55 DL [id number] 01/21/22 08:57 DL 01/14/22 01/17/22 01/21/22 09:31 08:16 08:55 Wound Care Nurse 3 #1 RLE -Ulcer Cleansing Rinsed/ Wound Cleanser Rinsed/ Irrigated with Irrigated with Saline Saline -Foul Odor after Cleansing No -Primary Dressing Covered/Secured with Dry Gauze & Roll Gauze Right -Multi-Layered Wrap Application Unna Boot - Unna Boot - Right ($) Right ($) -Compression Wrap Surepress ($) Left -Multi-Layered Wrap Application Multi-Layer Multi-Layer Comp - Left ($) Comp - Left ($) -Compression Wrap Surepress ($) Treatment Response Procedure Procedure Tolerated Well Tolerated Well Vital Signs Temperature (97.8 F-99.1 F) 96.7 F L Temperature Source Temporal Pulse Rate (60-100) 83 Pulse Location Monitor Respiratory Rate (12-18) 18 Respiratory rate source Observation Blood Pressure (90/60-120/80) 124/49 H Blood Pressure Mean 74 Source Monitor Position Sitting Blood Pressure Location Right Arm Pain Scale: 0-10 Numeric Is Patient Pain Free? Yes Yes Yes WC - Visit Discharge Discharge Condition Stable Stable Stable Ambulatory Status Ambulatory Ambulatory Ambulatory Transportation Private Auto Private Auto Private Auto Medication Reconcilliation completed & No provided to patient/care provider Clinical Summary of Care Provided Yes Assessment/Plan Assessment/Plan (1) Dermatomycosis: CODE(S): B36.9 - Superficial mycosis, unspecified (2) Dependent edema: CODE(S): R60.9 - Edema, unspecified (3) Venous stasis dermatitis: CODE(S): I87.2 - Venous insufficiency (chronic) (peripheral) (4) Leg edema: CODE(S): R60.0 - Localized edema (5) Leg swelling: CODE(S): M79.89 - Other specified soft tissue disorders (6) Obesity: CODE(S): E66.9 - Obesity, unspecified (7) Glaucoma: CODE(S): H40.9 - Unspecified glaucoma (8) Obstructive sleep apnea: CODE(S): G47.33 - Obstructive sleep apnea (adult) (pediatric) (9) Chronic kidney disease, stage 3: CODE(S): N18.30 - Chronic kidney disease, stage 3 unspecified (10) Hyperlipidemia: CODE(S): E78.5 - Hyperlipidemia, unspecified (11) Hypertension: CODE(S): I10 - Essential (primary) hypertension (12) Asthma: CODE(S): J45.909 - Unspecified asthma, uncomplicated (13) GERD (gastroesophageal reflux disease): CODE(S): K21.9 - Gastro-esophageal reflux disease without esophagitis (14) Restless leg: (15) Osteoarthritis: (16) Essential (primary) hypertension: CODE(S): I10 - Essential (primary) hypertension PLAN: This is a 71-year-old obese female who presented with chronic swelling and edema in her lower extremities bilaterally. In addition, she has erythematous, dermatitic changes in the gaiter area of the right lower extremity. There are no odalys open wounds or ulcerations at this time. We are to continue conservative treatment measures relative to the patient's swelling and edema. Patient has been instructed to continue sleeping on a flat mattress at night. She has been advised to elevate her lower extremities even during daytime hours. Elevation is to be to heart level, or higher. This is to be implemented as much as possible. Prolonged idle sitting has been discouraged. Activity has been encouraged, though the patient is somewhat limited by her asthma. At this juncture, there is suspicion that the large area of erythema in the right gaiter area may represent a dermatomycosis. Lotrisone cream 1% was prescribed last week, and is to continue. Thus far, there has been very little improvement in the erythema and redness. It appears as though the patient has been relatively noncompliant with recommended measures. She is not elevating her lower extremities as much as recommended during daytime hours. She complains about the SurePress wraps, and indicates that she is not wrapping as per instructions. She is not wrapping as tight as necessary because she claims that she experiences discomfort. In summary, the amount of elevation and compression does not conform with what has been recommended. She has been encouraged to elevate her lower extremities more hours each day, and to use the SurePress wraps as intended. There has been very little improvement in the erythema in the right gaiter area. While we will continue the Lotrisone cream 1% topically twice daily, we will also add Keflex 500 mg p.o. 3 times daily for 7 days, empirically given due to possible cellulitic changes. Dermatomycosis appears the like the cause, but cellulitis cannot be excluded, and there is no drainage to allow cultures. Weight loss has been recommended. Pneumatic mechanical compression pumps have been recommended for the patient's lower extremities, which would likely assist in the control of the patient's lower extremity swelling and edema. However, the patient states I do not want pumps. I will never use them. Thus, the patient has explicitly refused mechanical pneumatic compression pumps. Furthermore, it appears as though she has been relatively noncompliant with recommended measures thus far, namely adequate compression and leg elevation. The patient is to return in 1 week for reassessment. However, her noncompliant demeanor suggests a rather poor prognosis for resolution of the swelling, edema, and erythema in her right lower extremity. Total time: 29 minutes
[2022-02-04 08:17] VITALS: BP 153/63; PULSE 74; TEMP 36.2; BMI 40.8
--- NOTE | 2022-02-04 08:39 | HP.PCM_ITS ---
History of Present Illness Date of Service: 02/04/22 Chief Complaint: Bilateral lower extremity swelling and edema, with chronic dermatitic changes in the right gaiter area History of Wound: This is a 71-year-old female who presented with chronic swelling and edema in her lower extremities, with dermatitic changes in the gaiter area of the right lower extremity. The swelling and edema had been present for approximately 4 months. There currently were no open wounds. Erythema and sloughing epithelium were present in the right lower extremity. Patient claims that she has swelling in her lower extremities, more pronounced in the evenings. The skin changes in the right lower extremity began in September 2021, at which time she developed blistering. Because of the itching, patient scratched it, subsequently creating superficial ulcerations. She has been treated by her primary care physician in the past by steroid creams, which did not provide any improvement. The patient claims to sleep on a flat mattress at night. However, ambulation is limited due to pulmonary factors, as her asthma limits her ability to walk any significant distances. She spends a great deal of her time each day sitting. However, she denies any symptoms of intermittent claudication to suggest the presence of arterial insufficiency. Patient denies a history of lower extremity thrombophlebitis. [facility] Medical History Asthma Chronic kidney disease, stage 3 Dependent edema Dermatomycosis GERD (gastroesophageal reflux disease) Glaucoma Hyperlipidemia Hypertension Leg edema Leg swelling Obesity Obstructive sleep apnea Venous stasis dermatitis Home Medications atorvastatin 10 mg PO DAILY 01/07/22 [History Last Taken Unknown] esomeprazole magnesium 40 mg PO DAILY 01/07/22 [History Last Taken Unknown] famotidine 40 mg PO DAILY 01/07/22 [History Last Taken Unknown] furosemide 10 mg PO BID 01/07/22 [History Last Taken Unknown] labetalol 300 mg PO BID 01/07/22 [History Last Taken Unknown] latanoprost 1 drp EACH EYE DAILY 01/07/22 [History Last Taken Unknown] lisinopril 20 mg PO DAILY 01/07/22 [History Last Taken Unknown] magnesium 15 mg PO DAILY 01/07/22 [History Last Taken Unknown] potassium citrate 10 meq PO TID 01/07/22 [History Last Taken Unknown] pramipexole 1 mg PO DAILY 01/07/22 [History Last Taken Unknown] spironolactone 25 mg DAILY 01/07/22 [History Last Taken Unknown] timolol maleate 1 drp EACH EYE DAILY 01/07/22 [History Last Taken Unknown] Allergy/AdvReac Type Severity Reaction Status Date / Time acetaminophen [From Vicodin] Allergy Itching Verified 01/07/22 10:55 hydrocodone [From Vicodin] Allergy Itching Verified 01/07/22 10:55 naproxen Allergy Swelling Verified 01/07/22 10:55 alendronate sodium AdvReac Nausea Verified 01/07/22 10:55 [From Fosamax] meloxicam AdvReac Nausea Verified 01/07/22 10:55 Social History Smoking Status: Never smoker Vital Signs Vital Signs Vital Signs: 02/04/22 08:17 Temperature 97.2 F L Temperature Source Temporal Pulse Rate 74 Blood Pressure 153/63 H Blood Pressure Mean 93 Weight Weight: 209 lb Body Mass Index (BMI) 40.8 Physical Exam Const alert, oriented x3, no apparent distress and well nourished Constitutional Narrative: The patient is obese. General Appearance: cooperative, comfortable, well kempt and well developed Orientation / Consciousness: awake, oriented to person, oriented to place and oriented to time HEENT normocephalic and head/scalp atraumatic Head and Scalp: normal to inspection, normocephalic and atraumatic External Ear: external ears normal Eyes PERRL and EOMs intact bilaterally General Eye: normal appearance of both eyes Resp normal respiratory effort, normal air movement, no retractions and no use of accessory muscles Effort and Inspection: able to speak in complete sentences Extremity no calf tenderness General Extremity: Negative for clubbing or cyanosis Skin Wound Narrative: Slight swelling and edema persist in the patient's lower extremities, though with improvement. The erythema and dermatitic changes in the right gaiter area persist, and appear to be circumferential. There are very superficial excoriations on the right pretibial area. Neuro oriented x3, CN's II-XII intact bilaterally and moves all extremities Sensorium / Orientation: awake, alert, oriented to person, oriented to place and oriented to time Psych Appearance: grossly normal and appropriate Attitude: calm Activity / Motor Behavior: appropriate eye contact Speech: normal speech Mood & Affect: euthymic mood Thought Process: normal thought process Thought Content: normal thought content Attention / Concentration: attention grossly intact Debridement Note Debridement Note No debridement was completed: No debridement was completed today Post-Debridement Measurements and Additional Note: Post-Debridement Measurements/Treatment - Nurse 1 - General Ulcer Assessment Start: 01/14/22 08:25 Freq: Status: Active Protocol: WC.LOWJEANNIET Activity Type Activity Date Activity User E-Sign Co-Sign Detail Recorded Client Recorded Date Recorded By Document 01/14/22 08:25 KR [id number] 01/14/22 08:37 KR Document 01/17/22 08:16 RB [id number] 01/17/22 08:20 RB Document 01/21/22 08:25 AK [id number] 01/21/22 08:30 AK Document 01/28/22 08:18 AK [id number] 01/28/22 08:24 AK Document 02/04/22 08:17 KR [id number] 02/04/22 08:20 KR 01/14/22 01/17/22 01/21/22 08:25 08:16 08:25 - Today's Visit Information Type of service Follow-up Visit Nurse-only Follow-up Visit (Physician/MOUTHPIECE MAKER Visit (Physician/MOUTHPIECE MAKER ) ) Arrival Mode Ambulatory Ambulatory Ambulatory Transfer Assistance None Patient Identification Verified (Name & Yes Yes Yes ) Patient Requires Transmission-Based No No Precautions Safety Precautions NA Height and Weight Body Mass Index (BMI) 40.8 40.8 40.8 BMI Classification Obese Obese Obese Vital Signs Temperature (97.8 F-99.1 F) 96.5 F L 96.7 F L 96.6 F L Temperature Source Temporal Temporal Temporal Pulse Rate (60-100) 100 83 83 Pulse Location Monitor Monitor Respiratory Rate (12-18) 18 Respiratory rate source Observation Blood Pressure (90/60-120/80) 147/62 H 124/49 H 127/53 H Blood Pressure Mean 90 74 77 Source Monitor Monitor Monitor Position Sitting Sitting Blood Pressure Location Left Arm Right Arm History Since Last Visit- (Skip if this is Patient's initial visit) Have you changed medications since your No No No last visit? Any new allergies or adverse reactions No No No Had a fall/change in ADL's that may No No No increase risk of falls Signs or symptoms of abuse and/or No No No neglect since last visit Have you been in the hospital since your No No No last visit? Has dressing in place as prescribed Yes Yes Yes Has compression in place as prescribed Yes Yes Yes Has offloadiing in place as prescribed N/A No N/A Experienced any changes in pain level or No No No management Left Footwear Regular Shoe Regular Shoe Regular Shoe Right Footwear Regular Shoe Regular Shoe Regular Shoe Pain Scale: 0-10 Numeric Is Patient Pain Free? Yes Yes Yes 01/28/22 02/04/22 08:18 08:17 WC - Today's Visit Information Type of service Follow-up Visit Follow-up Visit (Physician/MOUTHPIECE MAKER (Physician/MOUTHPIECE MAKER ) ) Arrival Mode Ambulatory Transfer Assistance Patient Identification Verified (Name & Yes ) Patient Requires Transmission-Based No Precautions Safety Precautions Height and Weight Body Mass Index (BMI) 40.8 40.8 BMI Classification Obese Obese Vital Signs Temperature (97.8 F-99.1 F) 97.2 F L Temperature Source Temporal Pulse Rate (60-100) 74 Pulse Location Monitor Respiratory Rate (12-18) Respiratory rate source Blood Pressure (90/60-120/80) 153/63 H Blood Pressure Mean 93 Source Position Blood Pressure Location History Since Last Visit- (Skip if this is Patient's initial visit) Have you changed medications since your No last visit? Any new allergies or adverse reactions No Had a fall/change in ADL's that may No increase risk of falls Signs or symptoms of abuse and/or No neglect since last visit Have you been in the hospital since your No last visit? Has dressing in place as prescribed Yes Has compression in place as prescribed Yes Has offloadiing in place as prescribed N/A Experienced any changes in pain level or No management Left Footwear Regular Shoe Right Footwear Regular Shoe Pain Scale: 0-10 Numeric Is Patient Pain Free? Yes Yes - Nurse 1 - General Ulcer Measurement Start: 01/14/22 08:25 Freq: Status: Active Protocol: Activity Type Activity Date Activity User E-Sign Co-Sign Detail Recorded Client Recorded Date Recorded By Document 01/14/22 08:25 KR [id number] 01/14/22 08:37 KR Document 01/17/22 08:16 RB [id number] 01/17/22 08:20 RB Document 01/21/22 08:25 AK [id number] 01/21/22 08:30 AK Document 01/28/22 08:18 AK [id number] 01/28/22 08:24 AK Document 02/04/22 08:17 KR [id number] 02/04/22 08:20 KR 01/14/22 01/17/22 01/21/22 08:25 08:16 08:25 Wound Center Nurse 1 #1 RLE -Combined with other wound No -Current Size (cm) - Length 0.6 0.1 -Current Size (cm) - Width 0.6 0.1 -Current Size (cm) - Depth 0.1 0.1 -Total Square Cm 0.36 0.01 -Date of Last Picture (Recall this field) -Photo Taken No -Tunneling No -Undermining/Tunneling No -Circular Undermining No -Change in Wound Grade/Stage -Exudate Amt Small Large None Present -Exudate Type Serosanguineous Serosanguineous -Wound Margin Distinct, Outline Attached -Granulation Amt Small (1-33%) Medium (34-66%) Large (67-100%) -Granulation Quality [place] N/A,[place] -Slough/Fibrin Yes Yes -Necrosis Amt None Present (0 Large (67-100%) Large (67-100%) %) -Necrotic Tissue Type Adherent Slough Adherent Slough -Structure Exposed N/A -Texture (Caitlin-wound Skin Appearance) Assessed, No Abnormality, Scarring Assessed -Moisture (Caitlin-wound Skin Appearance) Assessed,Dry/ No Abnormality, Scaly Assessed -Color (Caitlin-wound Skin Appearance) No Abnormality, Assessed, Assessed Erythema -Temperature (Caitlin-wound Skin No Abnormality No Abnormality Appearance) (Pt Warm) (Pt Warm) -Tenderness on Palpation (Caitlin-wound No No Skin Appearance) -Ulcer Cleansing Soap and Water Soap and Water -Foul Odor after Cleansing No No -Anesthetic Used 4% Lidocaine Solution Lower Limb Edema Present Yes No Right Calf (cm) 43.1 37.2 Right Ankle (cm) 26.5 24.8 Left Calf (cm) 40 37.5 Left Ankle (cm) 24.2 23.5 05/17/22 05/24/22 08:18 08:17 Wound Center Nurse 1 #1 RLE -Combined with other wound No -Current Size (cm) - Length 0.1 4.5 -Current Size (cm) - Width 0.1 2.5 -Current Size (cm) - Depth 0.1 0.1 -Total Square Cm 0.01 11.25 -Date of Last Picture (Recall this 02/04/22 field) -Photo Taken Yes Yes -Tunneling No -Undermining/Tunneling No -Circular Undermining No -Change in Wound Grade/Stage No -Exudate Amt Small Medium -Exudate Type Serosanguineous -Wound Margin Indistinct, Non Distinct, -Visible Outline Attached -Granulation Amt Large (67-100%) Small (1-33%) -Granulation Quality [place] -Slough/Fibrin Yes -Necrosis Amt None Present (0 Small (1-33%) %) -Necrotic Tissue Type Adherent Slough -Structure Exposed N/A N/A -Texture (Caitlin-wound Skin Appearance) Excoriation, Assessed, Rash Excoriation -Moisture (Caitlin-wound Skin Appearance) Dry/Scaly No Abnormality, Assessed -Color (Caitlin-wound Skin Appearance) Hemosiderin Assessed, Staining Erythema -Temperature (Caitlin-wound Skin No Abnormality No Abnormality Appearance) (Pt Warm) (Pt Warm) -Tenderness on Palpation (Caitlin-wound No No Skin Appearance) -Ulcer Cleansing Soap and Water Rinsed/ Irrigated with Saline -Foul Odor after Cleansing No No -Anesthetic Used 4% Lidocaine 4% Lidocaine Solution Solution Lower Limb Edema Present Right Calf (cm) 39 42.6 Right Ankle (cm) 26 25.7 Left Calf (cm) 38.5 Left Ankle (cm) 25.4 WC - Nurse 3 - General Ulcer D/C NN Start: 01/14/22 08:25 Freq: Status: Active Protocol: Activity Type Activity Date Activity User E-Sign Co-Sign Detail Recorded Client Recorded Date Recorded By Document 01/14/22 09:31 KR [id number] 01/14/22 09:32 KR Document 01/17/22 08:16 RB [id number] 01/17/22 08:20 RB Document 01/21/22 08:55 DL [id number] 01/21/22 08:57 DL Document 01/28/22 11:54 DL [id number] 01/28/22 11:58 DL Document 02/04/22 08:38 KR [id number] 02/04/22 08:38 KR 01/14/22 01/17/22 01/21/22 09:31 08:16 08:55 Wound Care Nurse 3 #1 RLE -Ulcer Cleansing Rinsed/ Wound Cleanser Rinsed/ Irrigated with Irrigated with Saline Saline -Foul Odor after Cleansing No -Other Dressing -Primary Dressing Covered/Secured with Dry Gauze & Roll Gauze Right -Multi-Layered Wrap Application Unna Boot - Unna Boot - Right ($) Right ($) -Compression Wrap Surepress ($) Left -Multi-Layered Wrap Application Multi-Layer Multi-Layer Comp - Left ($) Comp - Left ($) -Compression Wrap Surepress ($) Treatment Response Procedure Procedure Tolerated Well Tolerated Well Vital Signs Temperature (97.8 F-99.1 F) 96.7 F L Temperature Source Temporal Pulse Rate (60-100) 83 Pulse Location Monitor Respiratory Rate (12-18) 18 Respiratory rate source Observation Blood Pressure (90/60-120/80) 124/49 H Blood Pressure Mean 74 Source Monitor Position Sitting Blood Pressure Location Right Arm Pain Scale: 0-10 Numeric Is Patient Pain Free? Yes Yes Yes WC - Visit Discharge Discharge Condition Stable Stable Stable Ambulatory Status Ambulatory Ambulatory Ambulatory Transportation Private Auto Private Auto Private Auto Medication Reconcilliation completed & No provided to patient/care provider Clinical Summary of Care Provided Yes Notes: 01/28/22 02/04/22 11:54 08:38 Wound Care Nurse 3 #1 RLE -Ulcer Cleansing Rinsed/ Rinsed/ Irrigated with Irrigated with Saline Saline -Foul Odor after Cleansing No -Other Dressing stockinette/ surepress -Primary Dressing Covered/Secured with Dry Gauze, Secured with Tape Right -Multi-Layered Wrap Application -Compression Wrap Surepress ($) Surepress ($) Left -Multi-Layered Wrap Application -Compression Wrap Surepress ($) Surepress ($) Treatment Response Procedure Tolerated Well Vital Signs Temperature (97.8 F-99.1 F) Temperature Source Pulse Rate (60-100) Pulse Location Respiratory Rate (12-18) Respiratory rate source Blood Pressure (90/60-120/80) Blood Pressure Mean Source Position Blood Pressure Location Pain Scale: 0-10 Numeric Is Patient Pain Free? Yes Yes WC - Visit Discharge Discharge Condition Stable Stable Ambulatory Status Ambulatory Ambulatory Transportation Private Auto Medication Reconcilliation completed & provided to patient/care provider Clinical Summary of Care Provided Notes: Pt to apply Lotrasone ointment at home daily Assessment/Plan Assessment/Plan (1) Leg swelling: CODE(S): M79.89 - Other specified soft tissue disorders (2) Leg edema: CODE(S): R60.0 - Localized edema (3) Venous stasis dermatitis: CODE(S): I87.2 - Venous insufficiency (chronic) (peripheral) (4) Dependent edema: CODE(S): R60.9 - Edema, unspecified (5) Dermatomycosis: CODE(S): B36.9 - Superficial mycosis, unspecified (6) Obesity: CODE(S): E66.9 - Obesity, unspecified (7) Glaucoma: CODE(S): H40.9 - Unspecified glaucoma (8) Obstructive sleep apnea: CODE(S): G47.33 - Obstructive sleep apnea (adult) (pediatric) (9) Chronic kidney disease, stage 3: CODE(S): N18.30 - Chronic kidney disease, stage 3 unspecified (10) Hyperlipidemia: CODE(S): E78.5 - Hyperlipidemia, unspecified (11) Hypertension: CODE(S): I10 - Essential (primary) hypertension (12) Asthma: CODE(S): J45.909 - Unspecified asthma, uncomplicated (13) GERD (gastroesophageal reflux disease): CODE(S): K21.9 - Gastro-esophageal reflux disease without esophagitis (14) Restless leg: (15) Osteoarthritis: (16) Essential (primary) hypertension: CODE(S): I10 - Essential (primary) hypertension PLAN: This is a 71-year-old obese female who presented with chronic swelling and edema in her lower extremities bilaterally. In addition, she has erythematous, dermatitic changes in the gaiter area of the right lower extremity. There are no odalys open wounds or ulcerations, though a small area of excoriation on the right pretibial area. We are to continue conservative treatment measures relative to the patient's swelling and edema. The patient has been instructed to continue sleeping on a flat mattress at night. She has been advised to elevate her lower extremities even during daytime hours. Elevation is to be to heart level, or higher. This is to be implemented as much as possible. Prolonged idle sitting has been discouraged. Activity has been encouraged, though the patient is somewhat limited by her asthma. There has been suspicion that the large area of erythema in the right gaiter area may represent a dermatomycosis. Lotrisone cream 1% was prescribed, and is to continue. Thus far, there has been very little improvement in the erythema and redness. It appears as though the patient has been relatively noncompliant with recommended measures. She is not elevating her lower extremities as much as recommended during daytime hours. She complains about the SurePress wraps, and indicates that she is not wrapping as per instructions. She is not wrapping as tight as necessary because she claims that she experiences discomfort. In summary, the amount of elevation and compression does not conform with what has been recommended. She has been encouraged to elevate her lower extremities more hours each day, and to use the SurePress wraps as intended. There has been very little improvement in the erythema in the right gaiter area. While we will continue the Lotrisone cream 1% topically twice daily, we have also added Keflex 500 mg p.o. 3 times daily for 7 days, empirically given due to possible cellulitic changes. Dermatomycosis appears the like the cause, but cellulitis cannot be excluded, and there is no drainage to allow cultures. Weight loss has been recommended. Pneumatic mechanical compression pumps have been recommended for the patient's lower extremities, which would likely assist in the control of the patient's lower extremity swelling and edema. However, the patient states I do not want pumps. I will never use them. Thus, the patient has explicitly refused mechanical pneumatic compression pumps. Furthermore, it appears as though she has been relatively noncompliant with recommended measures thus far, namely adequate compression and leg elevation. Given the dermatologic changes in the right lower extremity which have failed to respond to the aforementioned measures, we are to consult the Dermatology service for further evaluation. The patient will also be referred to the Lymphedema Clinic for evaluation and recommendations regarding long-term management of the patient's lower extremity swelling and edema. The patient is to return in 2 weeks for reassessment. It is hoped that she will have undergone Dermatology evaluation by that time. The patient's noncompliant nature suggests a rather poor prognosis for resolution of the swelling, edema, and erythema in her right lower extremity. Total time: 28 minutes
== END 2022-02-11 23:59 | disposition home or self-care (01) ==
LOC: WC 08:15
PROVIDERS: PCP Internal Medicine; Visit Provider Surgery
DX: R60.0 Localized edema (principal); Z68.41 Body mass index [BMI] 40.0-44.9, adult; N18.30 Chronic kidney disease, stage 3 unspecified; I12.9 Hypertensive chronic kidney disease with stage 1 through stage 4 chronic kidney disease, or unspecified chronic kidney disease; I87.2 Venous insufficiency (chronic) (peripheral); E78.5 Hyperlipidemia, unspecified; J45.909 Unspecified asthma, uncomplicated; G47.33 Obstructive sleep apnea (adult) (pediatric); H40.9 Unspecified glaucoma; E66.9 Obesity, unspecified; M19.90 Unspecified osteoarthritis, unspecified site; K21.9 Gastro-esophageal reflux disease without esophagitis; Z79.899 Other long term (current) drug therapy; Z91.19 Patient's noncompliance with other medical treatment and regimen
CPT/HCPCS: 29580; 29581; 99213; G0463

== ENCOUNTER 2022-03-11 08:00 | Outpatient (RCR) | payer MEDICARE, SELFPAY ==
[2022-02-12 01:08] VITALS: BP 153/63; PULSE 74; RESP 18; TEMP 36.2; BMI 40.8
[2022-02-18 08:10] VITALS: BP 151/85; PULSE 106; RESP 16; TEMP 35.8; BMI 40.8
--- NOTE | 2022-02-18 13:30 | HP.PCM_ITS ---
History of Present Illness Date of Service: 02/18/22 Chief Complaint: Bilateral lower extremity swelling and edema, with chronic dermatitic changes in the right gaiter area History of Wound: This is a 71-year-old female who presented with chronic swelling and edema in her lower extremities, with dermatitic changes in the gaiter area of the right lower extremity. The swelling and edema had been present for approximately 4 months. There currently were no open wounds. Erythema and sloughing epithelium were present in the right lower extremity. Patient claims that she has swelling in her lower extremities, more pronounced in the evenings. The skin changes in the right lower extremity began in September 2021, at which time she developed blistering. Because of the itching, patient scratched it, subsequently creating superficial ulcerations. She has been treated by her primary care physician in the past by steroid creams, which did not provide any improvement. The patient claims to sleep on a flat mattress at night. However, ambulation is limited due to pulmonary factors, as her asthma limits her ability to walk any significant distances. She spends a great deal of her time each day sitting. However, she denies any symptoms of intermittent claudication to suggest the presence of arterial insufficiency. Patient denies a history of lower extremity thrombophlebitis. [facility] Medical History Asthma Chronic kidney disease, stage 3 Dependent edema Dermatomycosis GERD (gastroesophageal reflux disease) Glaucoma Hyperlipidemia Hypertension Leg edema Leg swelling Obesity Obstructive sleep apnea Venous stasis dermatitis Home Medications atorvastatin 10 mg PO DAILY 01/07/22 [History Last Taken Unknown] esomeprazole magnesium 40 mg PO DAILY 01/07/22 [History Last Taken Unknown] famotidine 40 mg PO DAILY 01/07/22 [History Last Taken Unknown] furosemide 10 mg PO BID 01/07/22 [History Last Taken Unknown] labetalol 300 mg PO BID 01/07/22 [History Last Taken Unknown] latanoprost 1 drp EACH EYE DAILY 01/07/22 [History Last Taken Unknown] lisinopril 20 mg PO DAILY 01/07/22 [History Last Taken Unknown] magnesium 15 mg PO DAILY 01/07/22 [History Last Taken Unknown] potassium citrate 10 meq PO TID 01/07/22 [History Last Taken Unknown] pramipexole 1 mg PO DAILY 01/07/22 [History Last Taken Unknown] spironolactone 25 mg DAILY 01/07/22 [History Last Taken Unknown] timolol maleate 1 drp EACH EYE DAILY 01/07/22 [History Last Taken Unknown] Allergy/AdvReac Type Severity Reaction Status Date / Time acetaminophen [From Vicodin] Allergy Itching Verified 01/07/22 10:55 hydrocodone [From Vicodin] Allergy Itching Verified 01/07/22 10:55 naproxen Allergy Swelling Verified 01/07/22 10:55 alendronate sodium AdvReac Nausea Verified 01/07/22 10:55 [From Fosamax] meloxicam AdvReac Nausea Verified 01/07/22 10:55 Social History Smoking Status: Never smoker Vital Signs Vital Signs Vital Signs: 02/18/22 08:10 Temperature 96.5 F L Temperature Source Temporal Pulse Rate 106 H Respiratory Rate 16 Blood Pressure 151/85 H Blood Pressure Mean 107 Blood Pressure Source Monitor Weight Weight: 209 lb Body Mass Index (BMI) 40.8 Physical Exam Const alert, oriented x3, no apparent distress and well nourished Constitutional Narrative: The patient is obese. General Appearance: cooperative, comfortable, well kempt and well developed Orientation / Consciousness: awake, oriented to person, oriented to place and oriented to time HEENT normocephalic and head/scalp atraumatic Head and Scalp: normal to inspection, normocephalic and atraumatic External Ear: external ears normal Eyes PERRL and EOMs intact bilaterally General Eye: normal appearance of both eyes Resp normal respiratory effort, normal air movement, no retractions and no use of accessory muscles Effort and Inspection: able to speak in complete sentences Extremity no calf tenderness General Extremity: Negative for clubbing or cyanosis Skin Wound Narrative: Mild swelling and edema persist in the patient's lower extremities. Of note, the erythematous dermatitic changes persist in the right gaiter area, with very little change or improvement. There are no odalys open wounds or ulcerations, though several superficial excoriations are noted. Neuro oriented x3, CN's II-XII intact bilaterally and moves all extremities Sensorium / Orientation: awake, alert, oriented to person, oriented to place and oriented to time Psych Appearance: grossly normal and appropriate Attitude: calm Activity / Motor Behavior: appropriate eye contact Speech: normal speech Mood & Affect: euthymic mood Thought Process: normal thought process Thought Content: normal thought content Attention / Concentration: attention grossly intact Debridement Note Debridement Note No debridement was completed: No debridement was completed today (There are no open wounds or ulcerations.) Post-Debridement Measurements and Additional Note: Post-Debridement Measureme nts/Treatment - Nurse 1 - General Ulcer Assessment Start: 02/18/22 08:10 Freq: Status: Active Protocol: FRANCES Activity Type Activity Date Activity User E-Sign Co-Sign Detail Recorded Client Recorded Date Recorded By Document 02/18/22 08:10 ML [id number] 02/18/22 08:16 ML 02/18/22 08:10 - Today's Visit Information Type of service Follow-up Visit (Physician/PROJECT MANAGEMENT ) Arrival Mode Ambulatory Transfer Assistance None Patient Identification Verified (Name & Yes ) Patient Requires Transmission-Based No Precautions Safety Precautions NA Height and Weight Body Mass Index (BMI) 40.8 BMI Classification Obese Vital Signs Temperature (97.8 F-99.1 F) 96.5 F L Temperature Source Temporal Pulse Rate (60-100) 106 H Pulse Location Monitor Respiratory Rate (12-18) 16 Respiratory rate source Observation Blood Pressure (90/60-120/80) 151/85 H Blood Pressure Mean 107 Source Monitor History Since Last Visit- (Skip if this is Patient's initial visit) Have you changed medications since your No last visit? Any new allergies or adverse reactions No Signs or symptoms of abuse and/or No neglect since last visit Have you been in the hospital since your No last visit? Has dressing in place as prescribed Yes Has compression in place as prescribed Yes Has offloadiing in place as prescribed N/A Experienced any changes in pain level or No management Left Footwear Regular Shoe Right Footwear Regular Shoe Pain Scale: 0-10 Numeric Is Patient Pain Free? Yes - Nurse 1 - General Ulcer Measurement Start: 02/18/22 08:10 Freq: Status: Active Protocol: Activity Type Activity Date Activity User E-Sign Co-Sign Detail Recorded Client Recorded Date Recorded By Document 02/18/22 08:10 ML [id number] 02/18/22 08:16 ML 02/18/22 08:10 Wound Center Nurse 1 #1 RLE -Current Size (cm) - Length 3 -Current Size (cm) - Width 3 -Current Size (cm) - Depth 0.1 -Total Square Cm 9 -Exudate Amt Small -Exudate Type Serous -Wound Margin Distinct, Outline Attached -Granulation Amt Small (1-33%) -Slough/Fibrin Yes -Necrosis Amt Small (1-33%) -Necrotic Tissue Type Adherent Slough -Texture (Caitlin-wound Skin Appearance) Assessed -Color (Caitlin-wound Skin Appearance) Erythema -Temperature (Caitlin-wound Skin No Abnormality Appearance) (Pt Warm) -Tenderness on Palpation (Caitlin-wound No Skin Appearance) -Ulcer Cleansing Rinsed/ Irrigated with Saline -Foul Odor after Cleansing No -Anesthetic Used 4% Lidocaine Solution Right Calf (cm) 32.5 Right Ankle (cm) 24 Left Calf (cm) 29.5 Left Ankle (cm) 25.5 - Nurse 2 - General Ulcer CM Notes Start: 02/18/22 08:10 Freq: Status: Active Protocol: Activity Type Activity Date Activity User E-Sign Co-Sign Detail Recorded Client Recorded Date Recorded By Document 02/18/22 09:09 [id number] 02/18/22 09:09 02/18/22 09:09 Wound Center Nurse 2 #1 RLE -Procedure Performed No Pain Scale: 0-10 Numeric Is Patient Pain Free? Yes - Nurse 3 - General Ulcer D/C NN Start: 02/18/22 08:10 Freq: Status: Active Protocol: Activity Type Activity Date Activity User E-Sign Co-Sign Detail Recorded Client Recorded Date Recorded By Document 02/18/22 10:14 [email or web address] [id number] 02/18/22 10:15 [email or web address] 02/18/22 10:14 Wound Care Nurse 3 Left -Compression Wrap Surepress ($) Right -Multi-Layered Wrap Application Unna Boot - Right ($) Pain Scale: 0-10 Numeric Is Patient Pain Free? Yes - Visit Discharge Discharge Condition Stable Ambulatory Status Ambulatory Transportation Private Auto Assessment/Plan Assessment/Plan (1) Leg swelling: CODE(S): M79.89 - Other specified soft tissue disorders (2) Dependent edema: CODE(S): R60.9 - Edema, unspecified (3) Leg edema: CODE(S): R60.0 - Localized edema (4) Dermatomycosis: CODE(S): B36.9 - Superficial mycosis, unspecified (5) Venous stasis dermatitis: CODE(S): I87.2 - Venous insufficiency (chronic) (peripheral) (6) Obesity: CODE(S): E66.9 - Obesity, unspecified (7) Glaucoma: CODE(S): H40.9 - Unspecified glaucoma (8) Obstructive sleep apnea: CODE(S): G47.33 - Obstructive sleep apnea (adult) (pediatric) (9) Chronic kidney disease, stage 3: CODE(S): N18.30 - Chronic kidney disease, stage 3 unspecified (10) Hyperlipidemia: CODE(S): E78.5 - Hyperlipidemia, unspecified (11) Hypertension: CODE(S): I10 - Essential (primary) hypertension (12) Asthma: CODE(S): J45.909 - Unspecified asthma, uncomplicated (13) GERD (gastroesophageal reflux disease): CODE(S): K21.9 - Gastro-esophageal reflux disease without esophagitis (14) Restless leg: (15) Osteoarthritis: (16) Essential (primary) hypertension: CODE(S): I10 - Essential (primary) hypertension PLAN: This is a 71-year-old obese female who presented with chronic swelling and edema in her lower extremities bilaterally. In addition, she has erythematous, dermatitic changes in the gaiter area of the right lower extremity. There are no odalys open wounds or ulcerations, though a small area of excoriation on the right pretibial area. We are to continue conservative tr eatment measures relative to the patient's swelling and edema. The patient has been instructed to continue sleeping on a flat mattress at night. She has been advised to elevate her lower extremities even during daytime hours. Elevation is to be to heart level, or higher. This is to be implemented as much as possible. Prolonged idle sitting has been discouraged. Activity has been encouraged, though the patient is somewhat limited by her asthma. There has been suspicion that the large area of erythema in the right gaiter area may represent a dermatomycosis. Lotrisone cream 1% was prescribed, but with very little evidence of improvement after several weeks. There has been very little improvement in the erythema and redness. However, it appears as though the patient has been relatively noncompliant with recommended measures. She is not elevating her lower extremities as much as recommended during daytime hours. She has been encouraged to elevate her lower extremities for more hours each day. There has been very little improvement in the erythema and dermatitic changes in the right gaiter area. We are to transition from the use of Lotrisone cream 1% to the use of Unna boots in the right lower extremity, which will be changed 2 times per week. Patient is to continue using SurePress wraps in the left lower extremity on a daily basis. We have also treated with Keflex 500 mg p.o. 3 times daily for 7 days, empirically given due to possible cellulitic changes. Antibiotic treatment did not seem to affect the dermatitic changes in the right gaiter area. Weight loss has been recommended. Pneumatic mechanical compression pumps have been recommended for the patient's lower extremities, which would likely assist in the control of the patient's lower extremity swelling and edema. However, the patient states I do not want pumps. I will never use them. Thus, the patient has explicitly refused mechanical pneumatic compression pumps. Furthermore, it appears as though she has been relatively noncompliant with recommended measures thus far, namely adequate compression and leg elevation. Given the dermatologic changes in the right lower extremity which have failed to respond to the aforementioned measures, we are to consult the Dermatology service for further evaluation. The patient will also be referred to the Lymphedema Clinic for evaluation and recommendations regarding long-term management of the patient's lower extremity swelling and edema. The patient is to return in 1 week for reassessment. She has an appointment with Dr. Chela Oswald's office on March 06, 2022. We will await the recommendations from Dermatology. Total time: 29 minutes
[2022-02-25 08:12] VITALS: BP 141/61; PULSE 87; TEMP 36.4; BMI 40.8
--- NOTE | 2022-02-25 08:24 | PCM.WC.HP ---
History of Present Illness Date of Service: 02/25/22 Chief Complaint: Bilateral lower extremity swelling and edema, with chronic dermatitic changes in the right gaiter area History of Wound: This is a 71-year-old female who presented with chronic swelling and edema in her lower extremities, with dermatitic changes in the gaiter area of the right lower extremity. The swelling and edema had been present for approximately 4 months. There currently were no open wounds. Erythema and sloughing epithelium were present in the right lower extremity. Patient claims that she has swelling in her lower extremities, more pronounced in the evenings. The skin changes in the right lower extremity began in September 2021, at which time she developed blistering. Because of the itching, patient scratched it, subsequently creating superficial ulcerations. She has been treated by her primary care physician in the past by steroid creams, which did not provide any improvement. The patient claims to sleep on a flat mattress at night. However, ambulation is limited due to pulmonary factors, as her asthma limits her ability to walk any significant distances. She spends a great deal of her time each day sitting. However, she denies any symptoms of intermittent claudication to suggest the presence of arterial insufficiency. Patient denies a history of lower extremity thrombophlebitis. [facility] Medical History Asthma Chronic kidney disease, stage 3 Dependent edema Dermatomycosis GERD (gastroesophageal reflux disease) Glaucoma Hyperlipidemia Hypertension Leg edema Leg swelling Obesity Obstructive sleep apnea Venous stasis dermatitis Home Medications atorvastatin 10 mg PO DAILY 01/07/22 [History Last Taken Unknown] esomeprazole magnesium 40 mg PO DAILY 01/07/22 [History Last Taken Unknown] famotidine 40 mg PO DAILY 01/07/22 [History Last Taken Unknown] furosemide 10 mg PO BID 01/07/22 [History Last Taken Unknown] labetalol 300 mg PO BID 01/07/22 [History Last Taken Unknown] latanoprost 1 drp EACH EYE DAILY 01/07/22 [History Last Taken Unknown] lisinopril 20 mg PO DAILY 01/07/22 [History Last Taken Unknown] magnesium 15 mg PO DAILY 01/07/22 [History Last Taken Unknown] potassium citrate 10 meq PO TID 01/07/22 [History Last Taken Unknown] pramipexole 1 mg PO DAILY 01/07/22 [History Last Taken Unknown] spironolactone 25 mg DAILY 01/07/22 [History Last Taken Unknown] timolol maleate 1 drp EACH EYE DAILY 01/07/22 [History Last Taken Unknown] Allergy/AdvReac Type Severity Reaction Status Date / Time acetaminophen [From Vicodin] Allergy Itching Verified 01/07/22 10:55 hydrocodone [From Vicodin] Allergy Itching Verified 01/07/22 10:55 naproxen Allergy Swelling Verified 01/07/22 10:55 alendronate sodium AdvReac Nausea Verified 01/07/22 10:55 [From Fosamax] meloxicam AdvReac Nausea Verified 01/07/22 10:55 Social History Smoking Status: Never smoker Vital Signs Vital Signs Vital Signs: 02/25/22 08:12 Temperature 97.6 F L Temperature Source Temporal Pulse Rate 87 Blood Pressure 141/61 H Blood Pressure Mean 87 Blood Pressure Source Monitor Blood Pressure Position Sitting Blood Pressure Location Right Arm Weight Weight: 209 lb Body Mass Index (BMI) 40.8 Physical Exam Const alert, oriented x3, no apparent distress and well nourished Constitutional Narrative: The patient is obese. General Appearance: cooperative, comfortable, well kempt and well developed Orientation / Consciousness: awake, oriented to person, oriented to place and oriented to time HEENT normocephalic and head/scalp atraumatic Head and Scalp: normal to inspection, normocephalic and atraumatic External Ear: external ears normal Eyes PERRL and EOMs intact bilaterally General Eye: normal appearance of both eyes Resp normal respiratory effort, normal air movement, no retractions and no use of accessory muscles Effort and Inspection: able to speak in complete sentences Extremity no calf tenderness General Extremity: Negative for clubbing or cyanosis Skin Wound Narrative: Only slight swelling and edema persist in the patient's lower extremities bilaterally. There are no significant skin changes, wounds or ulcerations in the left lower extremity. On the right, erythematous dermatitic changes persist in the right gaiter area, with very little change or improvement over prior weeks. There are no odalys open wounds or ulcerations, though several superficial excoriations are noted. Neuro oriented x3, CN's II-XII intact bilaterally and moves all extremities Sensorium / Orientation: awake, alert, oriented to person, oriented to place and oriented to time Psych Appearance: grossly normal and appropriate Attitude: calm Activity / Motor Behavior: appropriate eye contact Speech: normal speech Mood & Affect: euthymic mood Thought Process: normal thought process Thought Content: normal thought content Attention / Concentration: attention grossly intact Debridement Note Debridement Note No debridement was completed: No debridement was completed today (There are no open wounds or ulcerations.) Post-Debridement Measurements and Additional Note: Post-Debridement Measurements/Treatment - Nurse 1 - General Ulcer Assessment Start: 02/18/22 08:10 Freq: Status: Active Protocol: JUSTIN.LOWEXT Activity Type Activity Date Activity User E-Sign Co-Sign Detail Recorded Client Recorded Date Recorded By Document 02/18/22 08:10 ML [id number] 02/18/22 08:16 ML Document 02/25/22 08:12 KR [id number] 02/25/22 08:13 KR 02/18/22 02/25/22 08:10 08:12 - Today's Visit Information Type of service Follow-up Visit Follow-up Visit (Physician/[employer] (Physician/[employer]PER[employer]OR ) ) Arrival Mode Ambulatory Ambulatory Transfer Assistance None Patient Identification Verified (Name & Yes Yes ) Patient Requires Transmission-Based No Precautions Safety Precautions NA Height and Weight Body Mass Index (BMI) 40.8 40.8 BMI Classification Obese Obese Vital Signs Temperature (97.8 F-99.1 F) 96.5 F L 97.6 F L Temperature Source Temporal Temporal Pulse Rate (60-100) 106 H 87 Pulse Location Monitor Monitor Respiratory Rate (12-18) 16 Respiratory rate source Observation Blood Pressure (90/60-120/80) 151/85 H 141/61 H Blood Pressure Mean 107 87 Source Monitor Monitor Position Sitting Blood Pressure Location Right Arm History Since Last Visit- (Skip if this is Patient's initial visit) Have you changed medications since your No No last visit? Any new allergies or adverse reactions No No Had a fall/change in ADL's that may No increase risk of falls Signs or symptoms of abuse and/or No No neglect since last visit Have you been in the hospital since your No No last visit? Has dressing in place as prescribed Yes Yes Has compression in place as prescribed Yes Yes Has offloadiing in place as prescribed N/A N/A Experienced any changes in pain level or No No management Left Footwear Regular Shoe Regular Shoe Right Footwear Regular Shoe Regular Shoe Pain Scale: 0-10 Numeric Is Patient Pain Free? Yes Yes WC - Nurse 1 - General Ulcer Measurement Start: 02/18/22 08:10 Freq: Status: Active Protocol: Activity Type Activity Date Activity User E-Sign Co-Sign Detail Recorded Client Recorded Date Recorded By Document 02/18/22 08:10 ML [id number] 02/18/22 08:16 ML Document 02/25/22 08:12 KR [id number] 02/25/22 08:13 KR 02/18/22 02/25/22 08:10 08:12 Wound Center Nurse 1 #1 RLE -Current Size (cm) - Length 3 3 -Current Size (cm) - Width 3 2.5 -Current Size (cm) - Depth 0.1 0.1 -Total Square Cm 9 7.5 -Exudate Amt Small Small -Exudate Type Serous Serosanguineous -Wound Margin Distinct, Distinct, Outline Outline Attached Attached -Granulation Amt Small (1-33%) Medium (34-66%) -Granulation Quality [place] -Slough/Fibrin Yes -Necrosis Amt Small (1-33%) Small (1-33%) -Necrotic Tissue Type Adherent Slough Adherent Slough -Texture (Caitlin-wound Skin Appearance) Assessed Assessed, Scarring -Moisture (Caitlin-wound Skin Appearance) No Abnormality, Assessed -Color (Caitlin-wound Skin Appearance) Erythema No Abnormality, Assessed -Temperature (Caitlin-wound Skin No Abnormality No Abnormality Appearance) (Pt Warm) (Pt Warm) -Tenderness on Palpation (Caitlin-wound No No Skin Appearance) -Ulcer Cleansing Rinsed/ Soap and Water Irrigated with Saline -Foul Odor after Cleansing No No -Anesthetic Used 4% Lidocaine 4% Lidocaine Solution Solution Right Calf (cm) 32.5 45 Right Ankle (cm) 24 26.8 Left Calf (cm) 29.5 41.1 Left Ankle (cm) 25.5 26.9 WC - Nurse 2 - General Ulcer CM Notes Start: 02/18/22 08:10 Freq: Status: Active Protocol: Activity Type Activity Date Activity User E-Sign Co-Sign Detail Recorded Client Recorded Date Recorded By Document 02/18/22 09:09 PL [id number] 02/18/22 09:09 PL 02/18/22 09:09 Wound Center Nurse 2 #1 RLE -Procedure Performed No Pain Scale: 0-10 Numeric Is Patient Pain Free? Yes - Nurse 3 - General Ulcer D/C NN Start: 02/18/22 08:10 Freq: Status: Active Protocol: Activity Type Activity Date Activity User E-Sign Co-Sign Detail Recorded Client Recorded Date Recorded By Document 02/18/22 10:14 KR [id number] 02/18/22 10:15 KR Document 02/21/22 10:47 KR [id number] 02/21/22 10:50 KR 02/18/22 02/21/22 10:14 10:47 #1 RLE -Ulcer Cleansing Rinsed/ Irrigated with Saline Wound Care Nurse 3 Left -Compression Wrap Surepress ($) Right -Multi-Layered Wrap Application Unna Boot - Unna Boot - Right ($) Right ($) Pain Scale: 0-10 Numeric Is Patient Pain Free? Yes Yes - Visit Discharge Discharge Condition Stable Stable Ambulatory Status Ambulatory Ambulatory Transportation Private Auto Private Auto Assessment/Plan Assessment/Plan (1) Leg swelling: CODE(S): M79.89 - Other specified soft tissue disorders (2) Leg edema: CODE(S): R60.0 - Localized edema (3) Dependent edema: CODE(S): R60.9 - Edema, unspecified (4) Dermatomycosis: CODE(S): B36.9 - Superficial mycosis, unspecified (5) Venous stasis dermatitis: CODE(S): I87.2 - Venous insufficiency (chronic) (peripheral) (6) Obesity: CODE(S): E66.9 - Obesity, unspecified (7) Glaucoma: CODE(S): H40.9 - Unspecified glaucoma (8) Obstructive sleep apnea: CODE(S): G47.33 - Obstructive sleep apnea (adult) (pediatric) (9) Chronic kidney disease, stage 3: CODE(S): N18.30 - Chronic kidney disease, stage 3 unspecified (10) Hyperlipidemia: CODE(S): E78.5 - Hyperlipidemia, unspecified (11) Hypertension: CODE(S): I10 - Essential (primary) hypertension (12) Asthma: CODE(S): J45.909 - Unspecified asthma, uncomplicated (13) GERD (gastroesophageal reflux disease): CODE(S): K21.9 - Gastro-esophageal reflux disease without esophagitis (14) Restless leg: (15) Osteoarthritis: (16) Essential (primary) hypertension: CODE(S): I10 - Essential (primary) hypertension PLAN: This is a 71-year-old obese female who presented with chronic swelling and edema in her lower extremities bilaterally. In addition, she has erythematous, dermatitic changes in the gaiter area of the right lower extremity. There are no odalys open wounds or ulcerations, though several small superficial excoriations. We are to continue conservative treatment measures relative to the patient's swelling and edema. The patient has been instructed to continue sleeping on a flat mattress at night. She has been advised to elevate her lower extremities even during daytime hours. Elevation is to be to heart level, or higher. This is to be implemented as much as possible. Prolonged idle sitting has been discouraged. Activity has been encouraged, though the patient is somewhat limited by her asthma. There has been suspicion that the large area of erythema in the right gaiter area may represent a dermatomycosis. Lotrisone cream 1% was prescribed, but with very little evidence of improvement after several weeks. There has been very little improvement in the erythema and redness. Most recently, an Unna boot has been applied to the patient's right lower extremity, changed twice weekly. The patient has been applying a SurePress compression wrap to the left lower extremity each day. We have also treated the patient with Keflex 500 mg p.o. 3 times daily for 7 days, empirically prescribed due to suspicion that the erythematous changes in the right gaiter area may be due to cellulitis. Antibiotic treatment did not seem to affect the erythema and dermatitic changes in the right gaiter area. Pneumatic mechanical compression pumps have been recommended for the patient's lower extremities, which would likely assist in the control of the patient's lower extremity swelling and edema. However, the patient stated I do not want pumps. I will never use them. Thus, the patient has explicitly refused mechanical pneumatic compression pumps. The dermatologic changes in the right gaiter area have failed to respond to the aforementioned measures. We have addressed pathologies which may be due to chronic venous insufficiency, dermatomycosis, and infection/cellulitis. None of these measures implemented have resulted in significant improvement. Therefore, we are to consult the Dermatology service for further evaluation. It is hoped that a clinical perspective from a different medical discipline may assist in the diagnosis and appropriate management of the patient's presenting symptoms and manifestations. It is anticipated that the Dermatology philatelic consultant may consider biopsy of the involved skin lesion, which may help to elucidate the underlying etiology. The patient has an appointment with Dr. Chela Oswald's office on March 06, 2022. We will await the recommendations from Dermatology. The patient is to follow-up at our wound clinic in 2 weeks. Total time: 28 minutes
[2022-03-11 08:02] VITALS: BP 143/68; PULSE 86; TEMP 35.8; BMI 40.8
[2022-03-11 08:07] VITALS: BP 135/89; PULSE 85; RESP 16; TEMP 36.2; BMI 40.8
--- NOTE | 2022-03-11 08:24 | HP.PCM_ITS ---
History of Present Illness Date of Service: 03/11/22 Chief Complaint: Bilateral lower extremity swelling and edema, with chronic dermatitic changes in the right gaiter area History of Wound: This is a 71-year-old female who presented with chronic swelling and edema in her lower extremities, with dermatitic changes in the gaiter area of the right lower extremity. The swelling and edema had been present for approximately 4 months. There currently were no open wounds. Erythema and sloughing epithelium were present in the right lower extremity. Patient claims that she has swelling in her lower extremities, more pronounced in the evenings. The skin changes in the right lower extremity began in September 2021, at which time she developed blistering. Because of the itching, patient scratched it, subsequently creating superficial ulcerations. She has been treated by her primary care physician in the past by steroid creams, which did not provide any improvement. The patient claims to sleep on a flat mattress at night. However, ambulation is limited due to pulmonary factors, as her asthma limits her ability to walk any significant distances. She spends a great deal of her time each day sitting. However, she denies any symptoms of intermittent claudication to suggest the presence of arterial insufficiency. Patient denies a history of lower extremity thrombophlebitis. [facility] Medical History Asthma Chronic kidney disease, stage 3 Dependent edema Dermatomycosis GERD (gastroesophageal reflux disease) Glaucoma Hyperlipidemia Hypertension Leg edema Leg swelling Obesity Obstructive sleep apnea Venous stasis dermatitis Home Medications atorvastatin 10 mg tablet 10 mg PO DAILY 01/07/22 [History Last Taken Unknown] esomeprazole magnesium 40 mg capsule,delayed release 40 mg PO DAILY 01/07/22 [History Last Taken Unknown] famotidine 40 mg tablet 40 mg PO DAILY 01/07/22 [History Last Taken Unknown] furosemide 20 mg tablet 10 mg PO BID 01/07/22 [History Last Taken Unknown] labetalol 300 mg tablet 300 mg PO BID 01/07/22 [History Last Taken Unknown] latanoprost 0.005 % eye drops 1 drp EACH EYE DAILY 01/07/22 [History Last Taken Unknown] lisinopril 20 mg tablet 20 mg PO DAILY 01/07/22 [History Last Taken Unknown] magnesium 500 mg tablet 15 mg PO DAILY 01/07/22 [History Last Taken Unknown] potassium citrate 10 mEq (1,080 mg) tablet,extended release 10 meq PO TID 01/07/22 [History Last Taken Unknown] pramipexole 1 mg tablet 1 mg PO DAILY 01/07/22 [History Last Taken Unknown] spironolactone 25 mg DAILY 01/07/22 [History Last Taken Unknown] timolol maleate 0.5 % eye drops 1 drp EACH EYE DAILY 01/07/22 [History Last Taken Unknown] Allergy/AdvReac Type Severity Reaction Status Date / Time acetaminophen [From Vicodin] Allergy Itching Verified 01/07/22 10:55 hydrocodone [From Vicodin] Allergy Itching Verified 01/07/22 10:55 naproxen Allergy Swelling Verified 01/07/22 10:55 alendronate sodium AdvReac Nausea Verified 01/07/22 10:55 [From Fosamax] meloxicam AdvReac Nausea Verified 01/07/22 10:55 Social History Smoking Status: Never smoker Vital Signs Vital Signs Vital Signs: 03/11/22 08:02 03/11/22 08:07 Temperature 96.5 F L 97.1 F L Temperature Source Temporal Temporal Pulse Rate 86 85 Respiratory Rate 16 Blood Pressure 143/68 H 135/89 H Blood Pressure Mean 93 104 Blood Pressure Source Monitor Monitor Blood Pressure Position Semi-Fowlers Sitting Blood Pressure Location Right Arm Left Arm Weight Weight: 209 lb Body Mass Index (BMI) 40.8 Physical Exam Const alert, oriented x3, no apparent distress and well nourished Constitutional Narrative: The patient is obese. General Appearance: cooperative, comfortable, well kempt and well developed Orientation / Consciousness: awake, oriented to person, oriented to place and oriented to time HEENT normocephalic and head/scalp atraumatic Head and Scalp: normal to inspection, normocephalic and atraumatic External Ear: external ears normal Eyes PERRL and EOMs intact bilaterally General Eye: normal appearance of both eyes Resp normal respiratory effort, normal air movement, no retractions and no use of accessory muscles Effort and Inspection: able to speak in complete sentences Extremity no calf tenderness General Extremity: Negative for clubbing or cyanosis Skin Wound Narrative: Only slight swelling and edema persist in the patient's lower extremities bilaterally. There are no significant skin changes, wounds or ulcerations in the left lower extremity. On the right, erythematous dermatitic changes persist in the right gaiter area, though there has been an improvement, and the erythema is now much less prominent. There are no odalys open wounds or ulcerations. Neuro oriented x3, CN's II-XII intact bilaterally, moves all extremities and no focal motor deficits Sensorium / Orientation: awake, alert, oriented to person, oriented to place and oriented to time Psych Appearance: grossly normal and appropriate Attitude: calm Activity / Motor Behavior: appropriate eye contact Speech: normal speech Mood & Affect: euthymic mood Thought Process: normal thought process Thought Content: normal thought content Attention / Concentration: attention grossly intact Debridement Note Debridement Note No debridement was completed: No debridement was completed today (There are no open wounds or ulcerations.) Post-Debridement Measurements and Additional Note: Post-Debridement Measurements/Treatment - Nurse 1 - General Ulcer Assessment Start: 02/18/22 08:10 Freq: Status: Active Protocol: FRANCES Activity Type Activity Date Activity User E-sign Co-sign Detail Recorded Client Recorded Date Recorded By Document 02/18/22 08:10 ML [id number] 02/18/22 08:16 ML Document 02/25/22 08:12 KR [id number] 02/25/22 08:13 KR Document 03/11/22 08:02 KR [id number] 03/11/22 08:05 KR Document 03/11/22 08:07 DL [id number] 03/11/22 08:13 DL 02/18/22 02/25/22 03/11/22 08:10 08:12 08:02 - Today's Visit Information Type of service Follow-up Visit Follow-up Visit Follow-up Visit (Physician/CERTIFIED VETERINARY TECHNICIAN (Physician/CERTIFIED VETERINARY TECHNICIAN (Physician/CERTIFIED VETERINARY TECHNICIAN ) ) ) Arrival Mode Ambulatory Ambulatory Ambulatory Transfer Assistance None Patient Identification Verified (Name & Yes Yes Yes ) Patient Requires Transmission-Based No Precautions Safety Precautions NA Height and Weight Body Mass Index (BMI) 40.8 40.8 40.8 BMI Classification Obese Obese Obese Vital Signs Temperature (97.8 F-99.1 F) 96.5 F L 97.6 F L 96.5 F L Temperature Source Temporal Temporal Temporal Pulse Rate (60-100) 106 H 87 86 Pulse Location Monitor Monitor Monitor Respiratory Rate (12-18) 16 Respiratory rate source Observation Blood Pressure (90/60-120/80) 151/85 H 141/61 H 143/68 H Blood Pressure Mean 107 87 93 Source Monitor Monitor Monitor Position Sitting Semi-Fowlers Blood Pressure Location Right Arm Right Arm History Since Last Visit- (Skip if this is Patient's initial visit) Have you changed medications since your No No No last visit? Any new allergies or adverse reactions No No No Had a fall/change in ADL's that may No No increase risk of falls Signs or symptoms of abuse and/or No No No neglect since last visit Have you been in the hospital since your No No No last visit? Has dressing in place as prescribed Yes Yes No Has compression in place as prescribed Yes Yes Yes Has offloadiing in place as prescribed N/A N/A N/A Experienced any changes in pain level or No No No management Left Footwear Regular Shoe Regular Shoe Regular Shoe Right Footwear Regular Shoe Regular Shoe Regular Shoe Pain Scale: 0-10 Numeric Is Patient Pain Free? Yes Yes Yes 03/11/22 08:07 WC - Today's Visit Information Type of service Nurse-only Visit Arrival Mode Ambulatory Transfer Assistance None Patient Identification Verified (Name & Yes ) Patient Requires Transmission-Based No Precautions Safety Precautions NA Height and Weight Body Mass Index (BMI) 40.8 BMI Classification Obese Vital Signs Temperature (97.8 F-99.1 F) 97.1 F L Temperature Source Temporal Pulse Rate (60-100) 85 Pulse Location Monitor Respiratory Rate (12-18) 16 Respiratory rate source Monitor Blood Pressure (90/60-120/80) 135/89 H Blood Pressure Mean 104 Source Monitor Position Sitting Blood Pressure Location Left Arm History Since Last Visit- (Skip if this is Patient's initial visit) Have you changed medications since your No last visit? Any new allergies or adverse reactions No Had a fall/change in ADL's that may No increase risk of falls Signs or symptoms of abuse and/or No neglect since last visit Have you been in the hospital since your No last visit? Has dressing in place as prescribed Yes Has compression in place as prescribed Yes Has offloadiing in place as prescribed N/A Experienced any changes in pain level or No management Left Footwear Regular Shoe Right Footwear Regular Shoe Pain Scale: 0-10 Numeric Is Patient Pain Free? Yes WC - Nurse 1 - General Ulcer Measurement Start: 02/18/22 08:10 Freq: Status: Active Protocol: Activity Type Activity Date Activity User E-sign Co-sign Detail Recorded Client Recorded Date Recorded By Document 02/18/22 08:10 ML [id number] 02/18/22 08:16 ML Document 02/25/22 08:12 KR [id number] 02/25/22 08:13 KR Document 03/11/22 08:02 KR [id number] 03/11/22 08:05 KR Document 03/11/22 08:07 DL [id number] 03/11/22 08:13 DL 02/18/22 02/25/22 03/11/22 08:10 08:12 08:02 Wound Center Nurse 1 #1 RLE -Current Size (cm) - Length 3 3 0.1 -Current Size (cm) - Width 3 2.5 0.1 -Current Size (cm) - Depth 0.1 0.1 0.1 -Total Square Cm 9 7.5 0.01 -Exudate Amt Small Small None Present -Exudate Type Serous Serosanguineous -Wound Margin Distinct, Distinct, Distinct, Outline Outline Outline Attached Attached Attached -Granulation Amt Small (1-33%) Medium (34-66%) None Present (0 %) -Granulation Quality [place] -Slough/Fibrin Yes -Necrosis Amt Small (1-33%) Small (1-33%) None Present (0 %) -Necrotic Tissue Type Adherent Slough Adherent Slough -Texture (Caitlin-wound Skin Appearance) Assessed Assessed, Assessed, Scarring Scarring -Moisture (Caitlin-wound Skin Appearance) No Abnormality, Assessed,Dry/ Assessed Scaly -Color (Caitlin-wound Skin Appearance) Erythema No Abnormality, No Abnormality, Assessed Assessed -Temperature (Caitlin-wound Skin No Abnormality No Abnormality No Abnormality Appearance) (Pt Warm) (Pt Warm) (Pt Warm) -Tenderness on Palpation (Caitlin-wound No No No Skin Appearance) -Ulcer Cleansing Rinsed/ Soap and Water Rinsed/ Irrigated with Irrigated with Saline Saline -Foul Odor after Cleansing No No No -Anesthetic Used 4% Lidocaine 4% Lidocaine 5% Lidocaine Solution Solution Gel Right Calf (cm) 32.5 45 45.2 Right Ankle (cm) 24 26.8 27.1 Left Calf (cm) 29.5 41.1 43.2 Left Ankle (cm) 25.5 26.9 25.3 03/11/22 08:07 Wound Center Nurse 1 #1 RLE -Current Size (cm) - Length -Current Size (cm) - Width -Current Size (cm) - Depth -Total Square Cm -Exudate Amt -Exudate Type -Wound Margin -Granulation Amt -Granulation Quality -Slough/Fibrin -Necrosis Amt -Necrotic Tissue Type -Texture (Caitlin-wound Skin Appearance) -Moisture (Caitlin-wound Skin Appearance) -Color (Caitlin-wound Skin Appearance) -Temperature (Caitlin-wound Skin Appearance) -Tenderness on Palpation (Caitlin-wound Skin Appearance) -Ulcer Cleansing -Foul Odor after Cleansing -Anesthetic Used Right Calf (cm) Right Ankle (cm) Left Calf (cm) 43.8 Left Ankle (cm) 27.5 WC - Nurse 2 - General Ulcer CM Notes Start: 02/18/22 08:10 Freq: Status: Active Protocol: Activity Type Activity Date Activity User E-sign Co-sign Detail Recorded Client Recorded Date Recorded By Document 02/18/22 09:09 PL [id number] 02/18/22 09:09 PL 02/18/22 09:09 Wound Center Nurse 2 #1 RLE -Procedure Performed No Pain Scale: 0-10 Numeric Is Patient Pain Free? Yes WC - Nurse 3 - General Ulcer D/C NN Start: 02/18/22 08:10 Freq: Status: Active Protocol: Activity Type Activity Date Activity User E-sign Co-sign Detail Recorded Client Recorded Date Recorded By Document 02/18/22 10:14 KR [id number] 02/18/22 10:15 KR Document 02/21/22 10:47 KR [id number] 02/21/22 10:50 KR Document 02/25/22 08:35 KR [id number] 02/25/22 08:35 KR Document 03/11/22 08:07 DL [id number] 03/11/22 08:13 DL 02/18/22 02/21/22 02/25/22 10:14 10:47 08:35 Wound Care Nurse 3 #1 RLE -Ulcer Cleansing Rinsed/ Rinsed/ Irrigated with Irrigated with Saline Saline Left -Compression Wrap Surepress ($) Surepress ($) Right -Multi-Layered Wrap Application Unna Boot - Unna Boot - Unna Boot - Right ($) Right ($) Right ($) Vital Signs Temperature (97.8 F-99.1 F) Temperature Source Pulse Rate (60-100) Pulse Location Respiratory Rate (12-18) Respiratory rate source Blood Pressure (90/60-120/80) Blood Pressure Mean Source Position Blood Pressure Location Pain Scale: 0-10 Numeric Is Patient Pain Free? Yes Yes Yes WC - Visit Discharge Discharge Condition Stable Stable Stable Ambulatory Status Ambulatory Ambulatory Ambulatory Transportation Private Auto Private Auto Private Auto 03/11/22 08:07 Wound Care Nurse 3 #1 RLE -Ulcer Cleansing Left -Compression Wrap Right -Multi-Layered Wrap Application Vital Signs Temperature (97.8 F-99.1 F) 97.1 F L Temperature Source Temporal Pulse Rate (60-100) 85 Pulse Location Monitor Respiratory Rate (12-18) 16 Respiratory rate source Monitor Blood Pressure (90/60-120/80) 135/89 H Blood Pressure Mean 104 Source Monitor Position Sitting Blood Pressure Location Left Arm Pain Scale: 0-10 Numeric Is Patient Pain Free? Yes WC - Visit Discharge Discharge Condition Ambulatory Status Transportation Assessment/Plan Assessment/Plan (1) Leg swelling: CODE(S): M79.89 - Other specified soft tissue disorders (2) Leg edema: CODE(S): R60.0 - Localized edema (3) Dependent edema: CODE(S): R60.9 - Edema, unspecified (4) Dermatomycosis: CODE(S): B36.9 - Superficial mycosis, unspecified (5) Venous stasis dermatitis: CODE(S): I87.2 - Venous insufficiency (chronic) (peripheral) (6) Obesity: CODE(S): E66.9 - Obesity, unspecified (7) Glaucoma: CODE(S): H40.9 - Unspecified glaucoma (8) Obstructive sleep apnea: CODE(S): G47.33 - Obstructive sleep apnea (adult) (pediatric) (9) Chronic kidney disease, stage 3: CODE(S): N18.30 - Chronic kidney disease, stage 3 unspecified (10) Hyperlipidemia: CODE(S): E78.5 - Hyperlipidemia, unspecified (11) Hypertension: CODE(S): I10 - Essential (primary) hypertension (12) Asthma: CODE(S): J45.909 - Unspecified asthma, uncomplicated (13) GERD (gastroesophageal reflux disease): CODE(S): K21.9 - Gastro-esophageal reflux disease without esophagitis (14) Restless leg: (15) Osteoarthritis: (16) Essential (primary) hypertension: CODE(S): I10 - Essential (primary) hypertension PLAN: Plan This is a 71-year-old obese female who presented with chronic swelling and edema in her lower extremities bilaterally. In addition, she has erythematous, dermatitic changes in the gaiter area of the right lower extremity. There are no odalys open wounds or ulcerations, though several small superficial excoriations. We are to continue conservative treatment measures relative to the patient's swelling and edema. The patient has been instructed to continue sleeping on a flat mattress at night. She has been advised to elevate her lower extremities even during daytime hours. Elevation is to be to heart level, or higher. This is to be implemented as much as possible. Prolonged idle sitting has been discouraged. Activity has been encouraged, though the patient is somewhat limited by her asthma. There has been suspicion that the large area of erythema in the right gaiter area may represent a dermatomycosis. Lotrisone cream 1% was prescribed, but with very little evidence of improvement after several weeks. There has been very little improvement in the erythema and redness. Most recently, an Unna boot has been applied to the patient's right lower extremity, changed twice weekly. The patient has been applying a SurePress compression wrap to the left lower extremity each day. We have also treated the patient with Keflex 500 mg p.o. 3 times daily for 7 days, empirically prescribed due to suspicion that the erythematous changes in the right gaiter area may be due to cellulitis. Antibiotic treatment did not seem to affect the erythema and dermatitic changes in the right gaiter area. Pneumatic mechanical compression pumps have been recommended for the patient's lower extremities, which would likely assist in the control of the patient's lower extremity swelling and edema. However, the patient stated I do not want pumps. I will never use them. Thus, the patient has explicitly refused mechanical pneumatic compression pumps. The dermatologic changes in the right gaiter area have failed to respond to the aforementioned measures. We have addressed pathologies which may be due to chronic venous insufficiency, dermatomycosis, and infection/cellulitis. None of these measures implemented have resulted in significant improvement. Therefore, we have consulted Dermatology for further evaluation and assistance with management. She was seen by [facility] on March 06, 2022. In addition to the diagnoses of lymphedema and stasis dermatitis, patient was prescribed triamcinolone 0.1% ointment with instructions to apply topically twice daily. At the time of her appointment, the right lower extremity was wrapped with gauze and [place]. We have now instructed the patient to continue with the triamcinolone 0.1% ointment topically twice daily, and to wrap the right lower extremity with SurePress on a daily basis, from morning until bedtime. Patient has a follow-up appointment with the dermatology practice in 1 week, and will follow-up in our facility in 2 weeks. There does appear to have been improvement since the patient was last seen 1 week ago. Total time: 29 minutes
== END 2022-03-13 23:59 | disposition home or self-care (01) ==
LOC: WC 08:00
PROVIDERS: PCP Internal Medicine; Visit Provider Surgery
DX: M79.89 Other specified soft tissue disorders (principal); Z68.41 Body mass index [BMI] 40.0-44.9, adult; N18.30 Chronic kidney disease, stage 3 unspecified; B36.9 Superficial mycosis, unspecified; I12.9 Hypertensive chronic kidney disease with stage 1 through stage 4 chronic kidney disease, or unspecified chronic kidney disease; R60.0 Localized edema; H40.9 Unspecified glaucoma; G47.33 Obstructive sleep apnea (adult) (pediatric); K21.9 Gastro-esophageal reflux disease without esophagitis; M19.90 Unspecified osteoarthritis, unspecified site; E66.9 Obesity, unspecified; I87.2 Venous insufficiency (chronic) (peripheral); E78.5 Hyperlipidemia, unspecified; J45.909 Unspecified asthma, uncomplicated; Z79.899 Other long term (current) drug therapy
CPT/HCPCS: 29580; 99213; G0463

== ENCOUNTER 2022-03-25 07:47 | Outpatient (RCR) | payer MEDICARE, SELFPAY ==
[2022-03-14 00:39] VITALS: BP 135/89; PULSE 85; RESP 16; TEMP 36.2; BMI 40.8
[2022-03-25 08:02] VITALS: BP 146/75; PULSE 82; RESP 20; TEMP 36.7; BMI 40.8
--- NOTE | 2022-03-25 09:26 | HP.PCM_ITS ---
History of Present Illness Date of Service: 03/25/22 Chief Complaint: Bilateral lower extremity swelling and edema, with chronic dermatitic changes in the right gaiter area History of Wound: This is a 71-year-old female who presented with chronic swelling and edema in her lower extremities, with dermatitic changes in the gaiter area of the right lower extremity. The swelling and edema had been present for approximately 4 months. There currently were no open wounds. Erythema and sloughing epithelium were present in the right lower extremity. Patient claims that she has swelling in her lower extremities, more pronounced in the evenings. The skin changes in the right lower extremity began in September 2021, at which time she developed blistering. Because of the itching, patient scratched it, subsequently creating superficial ulcerations. She has been treated by her primary care physician in the past by steroid creams, which did not provide any improvement. The patient claims to sleep on a flat mattress at night. However, ambulation is limited due to pulmonary factors, as her asthma limits her ability to walk any significant distances. She spends a great deal of her time each day sitting. However, she denies any symptoms of intermittent claudication to suggest the presence of arterial insufficiency. Patient denies a history of lower extremity thrombophlebitis. [facility] Medical History Asthma Chronic kidney disease, stage 3 Dependent edema Dermatomycosis GERD (gastroesophageal reflux disease) Glaucoma Hyperlipidemia Hypertension Leg edema Leg swelling Obesity Obstructive sleep apnea Venous stasis dermatitis Home Medications atorvastatin 10 mg tablet 10 mg PO DAILY 01/07/22 [History Last Taken Unknown] esomeprazole magnesium 40 mg capsule,delayed release 40 mg PO DAILY 01/07/22 [History Last Taken Unknown] famotidine 40 mg tablet 40 mg PO DAILY 01/07/22 [History Last Taken Unknown] furosemide 20 mg tablet 10 mg PO BID 01/07/22 [History Last Taken Unknown] labetalol 300 mg tablet 300 mg PO BID 01/07/22 [History Last Taken Unknown] latanoprost 0.005 % eye drops 1 drp EACH EYE DAILY 01/07/22 [History Last Taken Unknown] lisinopril 20 mg tablet 20 mg PO DAILY 01/07/22 [History Last Taken Unknown] magnesium 500 mg tablet 15 mg PO DAILY 01/07/22 [History Last Taken Unknown] potassium citrate 10 mEq (1,080 mg) tablet,extended release 10 meq PO TID 01/07/22 [History Last Taken Unknown] pramipexole 1 mg tablet 1 mg PO DAILY 01/07/22 [History Last Taken Unknown] spironolactone 25 mg DAILY 01/07/22 [History Last Taken Unknown] timolol maleate 0.5 % eye drops 1 drp EACH EYE DAILY 01/07/22 [History Last Taken Unknown] Allergy/AdvReac Type Severity Reaction Status Date / Time acetaminophen [From Vicodin] Allergy Itching Verified 01/07/22 10:55 hydrocodone [From Vicodin] Allergy Itching Verified 01/07/22 10:55 naproxen Allergy Swelling Verified 01/07/22 10:55 alendronate sodium AdvReac Nausea Verified 01/07/22 10:55 [From Fosamax] meloxicam AdvReac Nausea Verified 01/07/22 10:55 Social History Smoking Status: Never smoker Vital Signs Vital Signs Vital Signs: 03/25/22 08:02 Temperature 98.1 F Temperature Source Temporal Pulse Rate 82 Respiratory Rate 20 H Blood Pressure 146/75 H Blood Pressure Mean 98 Blood Pressure Source Monitor Weight Weight: 209 lb Body Mass Index (BMI) 40.8 Physical Exam Const alert, oriented x3, no apparent distress and well nourished Constitutional Narrative: The patient is obese. General Appearance: cooperative, comfortable, well kempt and well developed Orientation / Consciousness: awake, oriented to person, oriented to place and oriented to time HEENT normocephalic and head/scalp atraumatic Head and Scalp: normal to inspection, normocephalic and atraumatic External Ear: external ears normal Eyes PERRL and EOMs intact bilaterally General Eye: normal appearance of both eyes Resp normal respiratory effort, normal air movement, no retractions and no use of accessory muscles Effort and Inspection: able to speak in complete sentences Extremity no calf tenderness General Extremity: Negative for clubbing or cyanosis Skin Wound Narrative: Only slight swelling and edema persist in the patient's lower extremities bilaterally. There are no significant skin changes, wounds or ulcerations in the left lower extremity. On the right, erythematous dermatitic changes persist in the right gaiter area. There are no odalys open wounds or ulcerations, but for a small cat scratch, which is superficial. Neuro oriented x3, CN's II-XII intact bilaterally, moves all extremities and no focal motor deficits Sensorium / Orientation: awake, alert, oriented to person, oriented to place and oriented to time Psych Appearance: grossly normal and appropriate Attitude: calm Activity / Motor Behavior: appropriate eye contact Speech: normal speech Mood & Affect: euthymic mood Thought Process: normal thought process Thought Content: normal thought content Attention / Concentration: attention grossly intact Debridement Note Debridement Note No debridement was completed: No debridement was completed today Post-Debridement Measurements and Additional Note: Post-Debridement Measurements/Treatment WC - Nurse 1 - General Ulcer Assessment Start: 03/25/22 08:02 Freq: Status: Active Protocol: FRANCES Activity Type Activity Date Activity User E-sign Co-sign Detail Recorded Client Recorded Date Recorded By Document 03/25/22 08:02 KAJAL [id number] 03/25/22 08:05 KAJAL 03/25/22 08:02 WC - Today's Visit Information Type of service Follow-up Visit (Physician/[employer] ) Arrival Mode Ambulatory Transfer Assistance None Patient Identification Verified (Name & Yes ) Patient Requires Transmission-Based No Precautions Height and Weight Body Mass Index (BMI) 40.8 BMI Classification Obese Vital Signs Temperature (97.8 F-99.1 F) 98.1 F Temperature Source Temporal Pulse Rate (60-100) 82 Pulse Location Monitor Respiratory Rate (12-18) 20 H Respiratory rate source Observation Blood Pressure (90/60-120/80) 146/75 H Blood Pressure Mean 98 Source Monitor History Since Last Visit- (Skip if this is Patient's initial visit) Have you changed medications since your No last visit? Any new allergies or adverse reactions No Had a fall/change in ADL's that may No increase risk of falls Signs or symptoms of abuse and/or No neglect since last visit Have you been in the hospital since your No last visit? Has dressing in place as prescribed No Has compression in place as prescribed Yes Has offloadiing in place as prescribed N/A Experienced any changes in pain level or No management Pain Scale: 0-10 Numeric Is Patient Pain Free? Yes JUSTIN - Nurse 1 - General Ulcer Measurement Start: 03/25/22 08:02 Freq: Status: Active Protocol: Activity Type Activity Date Activity User E-sign Co-sign Detail Recorded Client Recorded Date Recorded By Document 03/25/22 08:02 KR [id number] 03/25/22 08:05 KR 03/25/22 08:02 Wound Center Nurse 1 #1 RLE -Current Size (cm) - Length 1.5 -Current Size (cm) - Width 0.2 -Current Size (cm) - Depth 0.1 -Total Square Cm 0.30 -Photo Taken No -Exudate Amt None Present -Wound Margin Indistinct, Non -Visible -Granulation Amt Large (67-100%) -Granulation Quality [place] -Necrosis Amt None Present (0 %) -Structure Exposed N/A -Texture (Caitlin-wound Skin Appearance) Scarring,Rash -Moisture (Caitlin-wound Skin Appearance) No Abnormality -Color (Caitlin-wound Skin Appearance) No Abnormality -Temperature (Caitlin-wound Skin No Abnormality Appearance) (Pt Warm) -Tenderness on Palpation (Caitlin-wound No Skin Appearance) -Ulcer Cleansing Soap and Water -Foul Odor after Cleansing No -Anesthetic Used 4% Lidocaine Solution Right Calf (cm) 43.4 Right Ankle (cm) 25.8 Left Calf (cm) 43.2 Left Ankle (cm) 26.2 WC - Nurse 3 - General Ulcer D/C NN Start: 03/25/22 08:02 Freq: Status: Active Protocol: Activity Type Activity Date Activity User E-sign Co-sign Detail Recorded Client Recorded Date Recorded By Document 03/25/22 08:41 MW [id number] 03/25/22 08:42 MW 03/25/22 08:41 Wound Care Nurse 3 Right -Lotion applied to leg before No compression wrap -Stockings Yes Left -Lotion applied to leg before No compression wrap -Stockings Yes Treatment Response Procedure Tolerated Well Pain Scale: 0-10 Numeric Is Patient Pain Free? Yes Teaching: Wound Center Discharge Instructions -Person Taught Patient -Teaching Method Discussion -Response to teaching Verbalize understanding WC - Visit Discharge Discharge Condition Stable Ambulatory Status Ambulatory Transportation Private Auto Accompanied by self Medication Reconcilliation completed & No provided to patient/care provider Clinical Summary of Care Provided Yes Notes: discharged, patient to f/u with dermatology Assessment/Plan Assessment/Plan (1) Leg swelling: CODE(S): M79.89 - Other specified soft tissue disorders (2) Leg edema: CODE(S): R60.0 - Localized edema (3) Dependent edema: CODE(S): R60.9 - Edema, unspecified (4) Dermatomycosis: CODE(S): B36.9 - Superficial mycosis, unspecified (5) Venous stasis dermatitis: CODE(S): I87.2 - Venous insufficiency (chronic) (peripheral) (6) Obesity: CODE(S): E66.9 - Obesity, unspecified (7) Glaucoma: CODE(S): H40.9 - Unspecified glaucoma (8) Obstructive sleep apnea: CODE(S): G47.33 - Obstructive sleep apnea (adult) (pediatric) (9) Chronic kidney disease, stage 3: CODE(S): N18.30 - Chronic kidney disease, stage 3 unspecified (10) Hyperlipidemia: CODE(S): E78.5 - Hyperlipidemia, unspecified (11) Hypertension: CODE(S): I10 - Essential (primary) hypertension (12) Asthma: CODE(S): J45.909 - Unspecified asthma, uncomplicated (13) GERD (gastroesophageal reflux disease): CODE(S): K21.9 - Gastro-esophageal reflux disease without esophagitis (14) Restless leg: (15) Osteoarthritis: (16) Essential (primary) hypertension: CODE(S): I10 - Essential (primary) hypertension PLAN: Plan This is a 71-year-old obese female who presented with chronic swelling and edema in her lower extremities bilaterally. In addition, she has erythematous, dermatitic changes in the gaiter area of the right lower extremity. There are no odalys open wounds or ulcerations. The patient has been instructed to continue sleeping on a flat mattress at night. She has been advised to elevate her lower extremities even during daytime hours. Elevation is to be to heart level, or higher. This is to be implemented as much as possible. Prolonged idle sitting has been discouraged. Activity has been encouraged, though the patient is somewhat limited by her asthma. The patient has graduated compression stockings, as prescribed by [facility], and has been wearing daily. Continued daily use has been recommended. Pneumatic mechanical compression pumps have been recommended for the patient's lower extremities, which would likely assist in the control of the patient's lower extremity swelling and edema. However, the patient stated I do not want pumps. I will never use them. Thus, the patient has explicitly refused mechanical pneumatic compression pumps. The patient was seen by [facility] on March 06, 2022. The patient was prescribed triamcinolone 0.1% ointment with instructions to apply topically twice daily. As result of the topical treatment, the erythema and dermatitic changes in the right lower extremity essentially resolved, showing a great deal of improvement. The patient was once again evaluated at [facility] last week, and was advised to discontinue the triamcinolone 0.1% ointment topically. However, as result, the erythematous and dermatitic changes have recurred. The amount of swelling and edema in the patient's right lower extremity is minimal. The dermatologic palacio ges are not felt to be related to her chronic venous disease, but rather dermatological pathology. Patient has been advised to contact [facility] for reappointment and reevaluation of the skin changes in her right lower extremity. The patient understands the need for reevaluation from the dermatology service, and agrees to contact [facility] for an appointment. She is to continue the conservative treatment measures related to control of her swelling and edema, and is to be discharged from our facility. We will follow the patient henceforth on an as-needed basis. Medical records will be forwarded to [facility] for their review. Total time: 28 minutes
== END 2022-03-25 14:55 | disposition home or self-care (01) ==
LOC: WC 07:47
PROVIDERS: PCP Internal Medicine; Visit Provider Surgery
DX: M79.89 Other specified soft tissue disorders (principal); Z68.41 Body mass index [BMI] 40.0-44.9, adult; N18.30 Chronic kidney disease, stage 3 unspecified; I12.9 Hypertensive chronic kidney disease with stage 1 through stage 4 chronic kidney disease, or unspecified chronic kidney disease; R60.0 Localized edema; I87.2 Venous insufficiency (chronic) (peripheral); M19.90 Unspecified osteoarthritis, unspecified site; K21.9 Gastro-esophageal reflux disease without esophagitis; E78.5 Hyperlipidemia, unspecified; J45.909 Unspecified asthma, uncomplicated; H40.9 Unspecified glaucoma; G47.33 Obstructive sleep apnea (adult) (pediatric); E66.9 Obesity, unspecified
CPT/HCPCS: 99213; G0463

== ENCOUNTER 2023-08-16 10:21 | Emergency (ER) | payer MEDICARE, SELFPAY ==
[2023-08-16 10:22] VITALS: BP 166/80; PULSE 95; RESP 18; TEMP 36.3; O2SAT 97
--- NOTE | 2023-08-16 10:53 | RAD_ITS ---
EXAM: XR RIGHT TIBIA AND FIBULA, 2 VIEWS CLINICAL INDICATION: Pain TECHNIQUE: Frontal and lateral views of the right tibia and fibula. COMPARISON: No relevant prior studies available. FINDINGS: BONES/JOINTS: No acute fracture or subluxation. Knee prosthesis in place in satisfactory position. SOFT TISSUES: Diffuse soft tissue swelling. No radiopaque foreign body. RAD/Tibia & Fibula 2 Views IMPRESSION: No acute bone or joint abnormality. Soft tissue swelling. Electronically Signed: Adam Almonte MD at 11:46 EST ,
--- NOTE | 2023-08-16 10:53 | RAD_ITS ---
EXAM: XR RIGHT FOOT COMPLETE, 3 OR MORE VIEWS CLINICAL INDICATION: Pain, cellulitis TECHNIQUE: Frontal, lateral and oblique views of the right foot. COMPARISON: No relevant prior studies available. FINDINGS: BONES/JOINTS: No acute fracture or subluxation. Hammertoe deformities of the second and third toes. SOFT TISSUES: Dorsal soft tissue swelling. No radiopaque foreign body. RAD/Foot min 3 Views IMPRESSION: Dorsal soft tissue swelling. No acute bone or joint abnormality. Electronically Signed: Adam Almonte MD at 11:51 EST ,
--- NOTE | 2023-08-16 10:55 | ED.VIS.LOWEX ---
HPI History of Present Illness Chief Complaint: Wound Narrative Narrative: 72-year-old female presents with her [id number] because of pain and burning of her right lower extremity that she has had since yesterday. She had a longstanding history of lymphedema and wound on her right lower extremity. She states she has been on antibiotics for the last few weeks by her primary care provider/nurse practitioner. They went to [facility] the other week and received tramadol for pain. She is seen at the wound care center as well, and states that she has had problems for over a year and sees a wound care physician almost every month. She states additionally that she was told that there was nothing more that could be done. She has had drainage of clear to yellow fluid of her right lower extremity and burning sensation and pain. She denies any chest pain or shortness of breath. No fevers or chills, no nausea or vomiting. [facility] Medical History Asthma Chronic kidney disease, stage 3 Dependent edema Dermatomycosis GERD (gastroesophageal reflux disease) Glaucoma Hyperlipidemia Hypertension Leg edema Leg swelling Obesity Obstructive sleep apnea Venous stasis dermatitis Home Medications atorvastatin 10 mg tablet 10 mg PO DAILY 01/07/22 [History Last Taken Unknown] esomeprazole magnesium 40 mg capsule,delayed release 40 mg PO DAILY 01/07/22 [History Last Taken Unknown] famotidine 40 mg tablet 40 mg PO DAILY 01/07/22 [History Last Taken Unknown] furosemide 20 mg tablet 10 mg PO BID 01/07/22 [History Last Taken Unknown] labetalol 300 mg tablet 300 mg PO BID 01/07/22 [History Last Taken Unknown] latanoprost 0.005 % eye drops 1 drp EACH EYE DAILY 01/07/22 [History Last Taken Unknown] lisinopril 20 mg tablet 20 mg PO DAILY 01/07/22 [History Last Taken Unknown] magnesium 500 mg tablet 15 mg PO DAILY 01/07/22 [History Last Taken Unknown] potassium citrate 10 mEq (1,080 mg) tablet,extended release 10 meq PO TID 01/07/22 [History Last Taken Unknown] pramipexole 1 mg tablet 1 mg PO DAILY 01/07/22 [History Last Taken Unknown] spironolactone 25 mg DAILY 01/07/22 [History Last Taken Unknown] timolol maleate 0.5 % eye drops 1 drp EACH EYE DAILY 01/07/22 [History Last Taken Unknown] Allergy/AdvReac Type Severity Reaction Status Date / Time acetaminophen [From Vicodin] Allergy Itching Verified 08/16/23 10:35 hydrocodone [From Vicodin] Allergy Itching Verified 08/16/23 10:35 naproxen Allergy Swelling Verified 08/16/23 10:35 alendronate sodium AdvReac Nausea Verified 08/16/23 10:35 [From Fosamax] meloxicam AdvReac Nausea Verified 08/16/23 10:35 Social History Smoking Status: Never smoker ROS ROS ED ROS Narrative Constitutional: No fever, no chills. HEENT: No sore throat. No neck pain. No loss of vision. No rhinorrhea. Cardiovascular: No chest pain. No palpitations. No pedal edema. Respiratory: No cough, no shortness of breath. Abdominal: No abdominal pain. No nausea. No vomiting. Genitourinary: No dysuria. No hematuria. Musculoskeletal: No myalgias. No arthralgias. Neurologic: No headaches. No dizziness. No lightheadedness. Skin: No rash. Positive redness right lower extremity, lower portion and foot with clear to yellow drainage. Psychiatric: No depression. No anxiety. EXAM Physical Exam Narrative Exam Narrative: Afebrile. Vital signs noted. Nontoxic-appearing. HEENT: Normocephalic. Atraumatic. PERRL, EOMI. Neck soft and supple. No point tenderness or step off. Cardiovascular: Regular rate and rhythm. No murmurs, rubs, or gallops appreciated. Respiratory: No tachypnea. Lungs clear to auscultation bilaterally. Gastrointestinal: Abdomen soft, nontender, with normoactive bowel sounds. No rebound or guarding. Neurological: Awake. Alert. Nonfocal, nonlateralizing. Skin: No rash. Positive erythema and clear to yellow drainage of right lower extremity with chronic skin changes from lymphedema. Mild erythema of right foot. Palpable dorsalis pedis pulse. Musculoskeletal: No pedal edema. Full range of motion extremities. Const Vital Signs: 08/16/23 10:22 Temperature 97.4 F L Temperature Source Temporal Pulse Rate 95 Respiratory Rate 18 Blood Pressure 166/80 H Blood Pressure Mean 108 Pulse Ox 97 Oxygen Delivery Method Room Air MDM MDM MDM Narrative Medical decision making narrative: In the differential diagnosis is cellulitis of right lower extremity versus chronic lymphedema changes versus osteomyelitis. I have lower concern for sepsis as she is not hypotensive she has a pulse of 95. She is nontoxic-appearing. X-ray will be obtained of the right lower extremity tibia and fibula along with 3 views of the foot. I do feel basic blood work is indicated. She has been on antibiotics so initially I will refrain from obtaining blood cultures. With concern for osteomyelitis that she has had chronic leg wound I will review the x-rays. I reviewed her laboratory work and she has a normal white count 9.1, hemoglobin stable at 10.0, platelet count normal at 285, electrolyte panel is grossly unremarkable with a normal sodium of 138, potassium normal at 4.2, she has baseline kidney injury with creatinine at 1.36 with a BUN of 44, glucose appropriately elevated at 106 with a normal anion gap of 5. Lactic acid is normal at 1.5. She is not really meeting SIRS criteria. X-rays of the tibia and fibula on the right in 2 views interpreted by myself shows no evidence of gas in the tissue, no bony destruction. I also interpreted the foot x-rays in 3 views which shows no evidence of bony destruction. There is soft tissue swelling noted in the tibia and fibula x-ray as well consistent with her lymphedema. I reviewed the radiology reports which confirmed my independent interpretation is of the x-rays. Given that she is not septic, and she is already on antibiotics for presumed cellulitis, I do not feel that she requires observation or admission at this time. Through shared decision making, patient would like to continue outpatient treatment for her chronic lymphedema. It was recommended that she follow-up with the wound care center as soon as possible as well as her primary care provider. In discussion with the patient and her [id number], it was not felt that narcotic pain medication should be prescribed. She will continue her tramadol as needed and she was told that she could take up to 100 mg every 8 hours as needed for pain. I feel she can be discharged safely home with follow-up. Return instructions to the emergency department were reviewed. Disposition is discharged home in stable condition. History & Record Review Discussion w/independent historian: Patient Additional record(s) reviewed:: Prior ED visit and Prior labs Lab Data Attestation: I reviewed the patient's lab results. Labs: Laboratory Results - last 24 hr 08/16/23 11:14 WBC 9.1 RBC 3.09 L Hgb 10.0 L Hct 31.0 L MCV 100.3 H MCH 32.4 H MCHC 32.3 RDW Std Deviation 46.2 H RDW Coeff of Pau 12.6 Plt Count 285 MPV 10.2 Immature Gran % (Auto) 0.400 Neut % (Auto) 72.2 H Lymph % (Auto) 9.2 L Mccracken % (Auto) 13.3 H Eos % (Auto) 4.5 Baso % (Auto) 0.4 Absolute Neuts (auto) 6.6 Absolute Lymphs (auto) 0.84 Nucleated RBC % 0 Sodium 138 Potassium 4.2 Chloride 107 Carbon Dioxide 26.0 Anion Gap 5 BUN 44 H Creatinine 1.36 H Est GFR (MDRD) Af Amer 49 L Est GFR (MDRD) Non-Af 40 L BUN/Creatinine Ratio 32.4 H Glucose 106 Lactic Acid 1.5 Calcium 7.9 L Total Bilirubin 0.60 AST 66 H ALT 50 Alkaline Phosphatase 99 Total Protein 6.6 Albumin 3.0 L Globulin 3.6 Albumin/Globulin Ratio 0.8 L Radiography Diagnostic Testing: Clinical Impression(s) from Imaging Studies Foot X-Ray 08/16/23 10:53 IMPRESSION: Dorsal soft tissue swelling. No acute bone or joint abnormality. Electronically Signed: Adam Almonte MD at 11:51 EST Reading Location ID and State: [facility] / [place] Tel , Service support , Tibia/Fibula X-Ray 08/16/23 10:53 IMPRESSION: No acute bone or joint abnormality. Soft tissue swelling. Electronically Signed: Adam Almonte MD at 11:46 EST , Discharge Plan Triage Chief Complaint: Wound ED Provider: Markell Kelly Dx/Rx/DC Orders Clinical Impression: Leg swelling, Leg pain, right, Venous stasis dermatitis Instructions: ED Lymphedema, ED Pain, Acute, Uncertain Cause, ED Peripheral Edema, Unilateral Prescriptions: No Action pramipexole 1 mg Tablet 1 mg PO DAILY latanoprost 0.005 % Drops 1 drp EACH EYE DAILY magnesium 500 mg Tablet 15 mg PO DAILY atorvastatin 10 mg Tablet 10 mg PO DAILY lisinopril 20 mg Tablet 20 mg PO DAILY famotidine 40 mg Tablet 40 mg PO DAILY potassium citrate 10 mEq (1,080 mg) Tablet Extended Release 10 meq PO TID esomeprazole magnesium 40 mg Capsule,Delayed Release(Dr/Ec) 40 mg PO DAILY furosemide 20 mg Tablet 10 mg PO BID labetalol 300 mg Tablet 300 mg PO BID timolol maleate 0.5 % Drops 1 drp EACH EYE DAILY spironolactone 25 mg DAILY Primary Care Provider: Bambi Daily Referrals: Bambi Daily MD [Primary Care Provider] - As soon as possible Wound,Center [Non-Staff] - As soon as possible Activity Restrictions/Additional Instructions: Continue your previous medications. Follow-up with your primary care physician as soon as possible, as well as the wound care center. Continue to change her dressings. Return with fever, new or worsening symptoms. Disposition Disposition: Home, Self Care
[2023-08-16 11:24] LABS: Absolute Lymphocyte Count 0.84 X10^3/uL (0.83-4.51); Absolute Neutrophil Count 6.6 X10^3/uL (2.0-7.7); Basophil# 0.04 X10^3/uL; Basophil% 0.4 % (0-1); Eosinophil# 0.41 X10^3/uL; Eosinophils% 4.5 % (0-5); Lymphocyte # 0.84 X10^3/ul (0.83-4.51); Lymphocyte % 9.2 % (19-41); Mean Corp Hgb Conc 32.3 g/dL (32-36); Mean Corpuscular Hgb 32.4 pg (27.0-32.0); Mean Corpuscular Volume 100.3 fL (81-99); Mean Platelet Vol. 10.2 fl (6.2-12.0); Monocyte# 1.22 X10^3/uL; Monocyte% 13.3 % (0-10); NRBC Flagged by Analyzer 0 % (0-5); Neutrophil # 6.59 X10^3/uL (2.7-7.7); Neutrophil % 72.2 % (47-70); Platelet Count 285 K/mm3 (150-450); RBC Distribution Width CV 12.6 % (11.6-14.6); RBC Distribution Width SD 46.2 fl (35.1-43.9); Red Blood Count 3.09 M/mm3 (4.2-5.4); White Blood Count 9.1 K/mm3 (4.4-11.0)
[2023-08-16] MEDS: Morphine 4 MG/ML Syringe IV (11:24)
[2023-08-16] MEDS: Ondansetron 4 MG/2 ML Vial IV (11:25)
[2023-08-16 11:37] LABS: ALB/GLOB Ratio 0.8 RATIO (0.9-2.4); AST(SGOT) 66 U/L (15-37); Alanine Aminotransfer ALT/SGPT 50 U/L (13-56); Alkaline Phosphatase 99 U/L (45-117); Anion Gap 5 (5-15); BUN 44 mg/dL (7-18); BUN/Creat Ratio 32.4 RATIO (10-20); Calcium,Total 7.9 mg/dL (8.5-10.1); Chloride 107 mmol/L (98-107); Creatinine, Serum 1.36 mg/dL (0.55-1.02); EST Glomerular Filtration Rate 40 mL/min (>60); Est Glom Filt Rate - Afr Amer 49 mL/min (>60); Globulin 3.6 g/dL (2.2-4.2); Glucose 106 mg/dL (74-106); Potassium 4.2 mmol/L (3.5-5.1); Protein, Total 6.6 g/dL (6.4-8.2); Sodium Level 138 mmol/L (136-145)
[2023-08-16 11:44] LABS: Lactic Acid 1.5 mmol/L (0.4-1.9)
[2023-08-16 12:01] VITALS: BP 146/78; PULSE 64; RESP 14; TEMP 36.4; O2SAT 99; BMI 45.7
== END 2023-08-16 12:23 | disposition home or self-care (01) ==
PROVIDERS: Emergency Provider Emergency Medicine; PCP Internal Medicine; Visit Provider Emergency Medicine
DX: I87.2 Venous insufficiency (chronic) (peripheral) (principal); N18.30 Chronic kidney disease, stage 3 unspecified; M79.89 Other specified soft tissue disorders; M79.604 Pain in right leg; E78.5 Hyperlipidemia, unspecified; I12.9 Hypertensive chronic kidney disease with stage 1 through stage 4 chronic kidney disease, or unspecified chronic kidney disease; K21.9 Gastro-esophageal reflux disease without esophagitis; Z79.899 Other long term (current) drug therapy
CPT/HCPCS: 73590; 73630; 80053; 83605; 85025; 96374; 96375; 99283; J2405